=== PATIENT | male | born 1930 | race Caucasian/White ===

== ENCOUNTER 2017-03-26 17:21 | Inpatient (IN) | payer MEDICARE ==
[~2017-03-26] VITALS: Ht 182.9 cm; Wt 95.0 kg
[~2017-03-26 17:21] MED LIST: ASPI81 PO; B-1210005 OR; CENTTAB9 PO; FISH1000 PO; MELA3CAP2 PO; OMEP20CA5 PO; OYST500T71 PO
[2017-03-26 17:29] VITALS: BP 183/87; PULSE 67; RESP 17; TEMP 98.2; O2SAT 99
[2017-03-26 17:41] VITALS: RESP 17; O2SAT 100
--- NOTE | 2017-03-26 17:42 | PD ---
HPI Chief Complaint: fall Time Seen by Provider: 17:33 Travel History International Travel<30 days: No Contact w/Intl Traveler<30days: No History of Present Illness HPI 86-year-old male presents to the ED for evaluation of right hip pain. Onset after falling while attempting to open his sliding glass door just before arrival. He states that the doorknob broke, causing his fall. Patient denies hitting his head or loss of consciousness. He endorses 4/10 hip pain at rest, 8 /10 pain with attempted ROM. He has not been ambulatory since the accident. He denies numbness or weakness of the affected extremity. He takes an aspirin daily. He had a full lunch around noon today. Unsure of his last tetanus immunization. Per EMS he received 6mg morphine en route. PFSH Past Medical History Cancer: Yes (MELANOMA) Diminished Hearing: No GERD: Yes Glaucoma: Yes Genitourinary: Yes (ENLARGED PROSTATE) Hypertension: Yes Past Surgical History Abdominal Surgery: Yes (ESOPHAGOGASTRECTOMY 07/1994, HERNIA 1995) Appendectomy: Yes (1948) Eye Surgery: Yes (1991) Genitourinary Surgery: Yes (PROSTATE 07/06/2005) Other Surgery: Yes (MELANOMA REMOVED CHEST 11/1993, BACK/ RT SHOULDER 02/11/2004 ) Social History Alcohol Use: No Tobacco Use: No Substance Use: No Allergies-Medications (Allergen,Severity, Reaction): Coded Allergies: No Known Allergies (Verified , 03/26/17) Reported Meds & Prescriptions Reported Meds & Active Scripts Active Reported Melatonin 3 Mg Tab 3 Mg PO HS [Hydraplenish W/Msm] 1 Tab PO BID Lutein 6 Mg Tab 24 Mg PO DAILY Valsartan 80 Mg Tab 80 Mg PO DAILY Calcium 600+D (Calcium Carbonate-Vitamin D) 600-400 Mg-Unit Tab 1 Tab PO DAILY Aspirin Adult Low Strength (Aspirin) 81 Mg Tabdr 81 Mg PO DAILY Omeprazole 20 Mg Tab 20 Mg PO DAILY Metoprolol Succinate ER 24 HR (Metoprolol Succinate) 25 Mg Tab 25 Mg PO DAILY Centrum Silver Men Tablet (Multivit-Min/FA/Lycopen/Lutein) 300 Mcg-600 Mcg-300 Mcg Tablet 1 Tab PO DAILY Flaxseed Oil (Flaxseed (Linseed)) 1,000 Mg Cap 1,000 Mg PO DAILY Fish Oil 1000 mg ([place]-3 Fatty Acids) 300 Mg-1,000 Mg Cap 1,000 Mg PO DAILY B12 (Cyanocobalamin) 1,000 Mcg Tab 1,000 Mcg PO DAILY Alpha Lipoic Acid 200 Mg Cap 200 Mg PO DAILY Review of Systems Except as stated in HPI: all other systems reviewed are Neg Physical Exam Narrative GENERAL: Well-nourished, well-developed pleasant white male in no acute distress. SKIN: Focused skin assessment warm/dry. Abrasion of the right elbow. There is an ecchymosis the left hand, patient states is old. HEAD: Normocephalic. Atraumatic. EYES: No scleral icterus. No injection or drainage. PERRLA. EOMI. NECK: Supple, trachea midline. No JVD or lymphadenopathy. CARDIOVASCULAR: Regular rate and rhythm without murmurs, gallops, or rubs. RESPIRATORY: Breath sounds clear and equal bilaterally. No accessory muscle use. GASTROINTESTINAL: Abdomen soft, non-tender, nondistended. MUSCULOSKELETAL: No cyanosis, or edema. FOCUSED RIGHT LOWER EXTREMITY EXAM: 2+ DP pulse. The right leg is foreshortened , externally rotated. TTP of the anterolateral right hip. Sensation intact to light touch distally. Cap refill less than 2 seconds. BACK: Nontender without obvious deformity. No CVA tenderness. Data Data Last Documented VS Vital Signs Date Time Temp Pulse Resp B/P (MAP) Pulse Ox O2 Delivery O2 Flow Rate FiO2 03/26/17 17:41 17 100 Room Air 03/26/17 17:30 68 03/26/17 17:29 98.2 183/87 (119) Orders Orders Electrocardiogram (03/26/17:32) Complete Blood Count With Diff (03/26/17:32) Comprehensive Metabolic Panel (03/26/17:32) Prothrombin Time / Inr (Pt) (03/26/17:32) Act Partial Throm Time (Ptt) (03/26/17:32) Urinalysis - C+S If Indicated (03/26/17:32) Type And Screen (03/26/17:32) Chest, Single Ap (03/26/17:32) Hip, Uni(Ap&Lat) W Ap Pelvis (03/26/17 17:32) Iv Access Insert/Monitor (03/26/17:32) Oximetry (10/10/17 17:32) Ecg Monitoring (03/26/17 17:32) Sodium Chloride 0.9% Flush (Ns Flush) (03/26/17 17:45) NPO (03/26/17 17:32) Tetanus/Diphtheria Tox Adult (Tetanus/Di (03/26/17 18:00) Urinary Catheter Insert/Apply (03/26/17 18:14) Ct Brain W/O Iv Contrast(Rout) (03/26/17 ) Sodium Chlorid 0.9% 500 Ml Inj (Ns 500 M (03/26/17 18:30) Restraints Non-Violent SENG.Q3H (03/26/17 18:48) Consult Orthopedic (03/26/17 ) Admit To Inpatient (03/26/17 ) Vital Signs (Adult) SENG.Q4H (03/26/17 18:49) Activity Bed Rest (03/26/17 18:49) Quantitative Analyst / Telemetry SENG.Q8H (03/26/17 18:49) Intake + Output 06,14,22 (03/26/17 18:49) Diet Npo (03/26/17 Dinner) Sodium Chlor 0.45% 1000 Ml Inj (1/2 Ns 1 (03/26/17 19:00) Sodium Chloride 0.9% Flush (Ns Flush) (03/26/17 19:00) Sodium Chloride 0.9% Flush (Ns Flush) (03/26/17 21:00) Inpatient Certification (03/26/17 ) (Hub Use Only)Inp Phy Cons/Ref (03/26/17 ) Diet Heart Healthy (03/26/17 Dinner) Admit Order (Ed Use Only) (03/26/17 20:18) Labs Laboratory Tests Test 03/26/17 17:40 03/26/17 18:45 White Blood Count 7.2 TH/MM3 Red Blood Count 4.71 MIL/MM3 Hemoglobin 13.0 GM/DL Hematocrit 38.8 % Mean Corpuscular Volume 82.4 FL Mean Corpuscular Hemoglobin 27.5 PG Mean Corpuscular Hemoglobin Concent 33.4 % Red Cell Distribution Width 16.1 % Platelet Count 222 TH/MM3 Mean Platelet Volume 8.2 FL Neutrophils (%) (Auto) 71.5 % Lymphocytes (%) (Auto) 17.2 % Monocytes (%) (Auto) 10.1 % Eosinophils (%) (Auto) 0.7 % Basophils (%) (Auto) 0.5 % Neutrophils # (Auto) 5.2 TH/MM3 Lymphocytes # (Auto) 1.2 TH/MM3 Monocytes # (Auto) 0.7 TH/MM3 Eosinophils # (Auto) 0.1 TH/MM3 Basophils # (Auto) 0.0 TH/MM3 CBC Comment DIFF FINAL Differential Comment Prothrombin Time 10.6 SEC Prothromb Time International Ratio 1.0 RATIO Activated Partial Thromboplast Time 26.5 SEC Blood Urea Nitrogen 14 MG/DL Creatinine 1.56 MG/DL Random Glucose 110 MG/DL Total Protein 7.0 GM/DL Albumin 3.5 GM/DL Calcium Level 8.4 MG/DL Alkaline Phosphatase 77 U/L Aspartate Amino Transf (AST/SGOT) 22 U/L Alanine Aminotransferase (ALT/SGPT) 29 U/L Total Bilirubin 0.5 MG/DL Sodium Level 129 MEQ/L Potassium Level 3.4 MEQ/L Chloride Level 98 MEQ/L Carbon Dioxide Level 21.9 MEQ/L Anion Gap 9 MEQ/L Estimat Glomerular Filtration Rate 43 ML/MIN Urine Color YELLOW Urine Turbidity CLEAR Urine pH 7.5 Urine Specific Neptune 1.012 Urine Protein NEG mg/dL Urine Glucose (UA) NEG mg/dL Urine Ketones NEG mg/dL Urine Occult Blood NEG Urine Nitrite NEG Urine Bilirubin NEG Urine Urobilinogen LESS THAN 2.0 MG/DL Urine Leukocyte Esterase NEG Urine RBC LESS THAN 1 /hpf Urine WBC 3 /hpf Microscopic Urinalysis Comment CATH-CULT NOT IND MDM Medical Decision Making Medical Screen Exam Complete: Yes Emergency Medical Condition: Yes Differential Diagnosis fall from standing versus hip fracture versus abrasion versus need for tetanus immunization versus other Narrative Course 86-year-old male presents to the ED for evaluation of right hip pain. Onset after falling while attempting to open his sliding glass door just before arrival. He states that the doorknob broke, causing his fall. Patient denies hitting his head or loss of consciousness. He endorses 4/10 hip pain at rest, 8 /10 pain with attempted ROM. Vitals reviewed. On exam the patient is alert, oriented. The right leg is partially flexed at the knee, foreshortened and externally rotated. He has a bounding pulse in the foot him a sensation is intact to light touch distally. Tender to palpation of the anterolateral right hip. He has an abrasion on the right elbow and a bruise on the left hand. He states that the bruises old. Last tetanus 02/11/08 per chart review. Tetanus updated. EKG rate 78, sinus rhythm with occasional PVCs. RBBB. Normal axis. No acute ST changes. Reviewed by No concerning abnormalities of CBC, coags, UA. CMP: BUN 14, creatinine 1.56. GFR 43. Potassium 3.4. Calcium 8.4. X-ray right hip and pelvis: Nondisplaced fracture through the neck of the right femur per radiology read. The patient began having difficulties with speech. I suspect this is secondary to 6 mg morphine that was administered in route by EMS. CT brain was performed with no acute intracranial findings. Patient has a friend at bedside who requests that we call Dr. Castellano. I attempted to call Dr. Castellano, however Dr. Henderson is on-call for the group. I spoke with his PA Jos who requests that the patient be admitted to medicine and will relay the message to Dr. Castellano in the morning. I spoke with the PA for the [facility] who agrees to accept the patient under Dr. Sher. Please see medicine and ortho notes for disposition. Scripts Calcium Carbonate-Vitamin D (Calcium 600+D 200) 600-200 Mg-Unit Tab 1 TAB PO BID for Nutritional Supplement, #90 TAB 0 Refills Prov: Jarad Lockhart Jr. 03/27/17 Ergocalciferol (Ergocalciferol) 50,000 Unit Cap 57802 UNITS PO Q7D for Nutritional Supplement, #8 CAP Prov: Jarad Lockhart Jr. 03/27/17 Rivaroxaban (Xarelto) 10 Mg Tab 10 MG PO DAILY for Blood Clot Prevention, #21 TAB 0 Refills Prov: Jarad Lockhart Jr. 03/27/17 Hydrocodone-Acetaminophen (Hydrocodone-Acetaminophen) 7.5-325 mg Tab 1 TAB PO Q4H Y for PAIN, #40 TAB 0 Refills Prov: Jarad Lockhart Jr. 03/27/17 Christine Caceres Mar 26, 2017 17:42
[2017-03-26] MEDS ORDERED: SODIUM CHLORIDE 0.9% FLUSH 10 ML FLUSH IVF PRN (17:45)
[2017-03-26 17:58] LABS: AUTOMATED NEUTROPHIL # 5.2 TH/MM3 (1.8-7.7); BASOPHIL % 0.5 % (0.0-2.0); EOSINOPHIL # 0.1 TH/MM3 (0-0.4); EOSINOPHIL % 0.7 % (0.0-4.0); HEMATOCRIT 38.8 % (39.0-51.0); HEMO FLAGS DIFF FINAL; LYMPH % 17.2 % (9.0-44.0); LYMPHOCYTE # 1.2 TH/MM3 (1.0-4.8); MEAN CELL VOLUME 82.4 FL (80.0-100.0); MEAN CORPUSCULAR HEMOGLOBIN 27.5 PG (27.0-34.0); MEAN CORPUSCULAR HGB CONC 33.4 % (32.0-36.0); MONO % 10.1 % (0.0-8.0); NEUT % 71.5 % (16.0-70.0); PLATELET COUNT 222 TH/MM3 (150-450); RED BLOOD COUNT 4.71 MIL/MM3 (4.50-5.90); RED CELL DISTRIBUTION WIDTH 16.1 % (11.6-17.2); WHITE BLOOD COUNT 7.2 TH/MM3 (4.0-11.0)
[2017-03-26] MEDS ORDERED: TETANUS/DIPHTHERIA TOXOID ADULT 0.5 ML VIAL IM ONE (18:00)
--- NOTE | 2017-03-26 18:00 | RADRPT ---
EXAM DATE/TIME: 03/26/2017 17:44 [facility] COMPARISON: No previous studies available for comparison. INDICATIONS : Right hip pain post fall. MEDICAL HISTORY : None. SURGICAL HISTORY : None. ENCOUNTER: Initial ACUITY: 1 day PAIN SCORE: 10/10 LOCATION: Right hip. FINDINGS: There is a nondisplaced fracture through the neck of the proximal right femur. The femoral head remai ns within the acetabulum. Left hip is grossly intact. The bony structures of the pelvis are grossly i ntact. There is good alignment of the SI joints pubic symphysis. CONCLUSION: Nondisplaced fracture through the neck of the proximal right femur. Montrell Mcdermott MD on March 26, 2017 at 17:57 Board Certified Radiologist. This report was verified electronically.
[2017-03-26 18:11] LABS: APTT (PATIENT) 26.5 SEC (24.3-30.1); PROTHROMBIN TIME - PATIENT 10.6 SEC (9.8-11.6)
[2017-03-26 18:12] LABS: ALKALINE PHOSPHATASE 77 U/L (45-117); ALT (GPT) 29 U/L (12-78); ANION GAP 9 MEQ/L (5-15); AST (GOT) 22 U/L (15-37); BICARBONATE 21.9 MEQ/L (21.0-32.0); BLOOD UREA NITROGEN 14 MG/DL (7-18); CHLORIDE 98 MEQ/L (98-107); GLOMERULAR FILTRATION RATE 43 ML/MIN (>89); SODIUM (NA) 129 MEQ/L (136-145); TOTAL BILIRUBIN ADULT 0.5 MG/DL (0.2-1.0)
[2017-03-26 18:19] LABS: POTASSIUM 3.4 MEQ/L (3.5-5.1)
[2017-03-26] MEDS ORDERED: SODIUM CHLORID 0.9% 500 ML INJ 500 ML IV ONE (18:30)
[2017-03-26] MEDS ORDERED: CYAN1TAB24 PO (18:54)
[2017-03-26] MEDS ORDERED: MELA0.02 PO (18:54)
[2017-03-26] MEDS ORDERED: ALPH1CAP PO (18:54)
[2017-03-26] MEDS ORDERED: MSM PO (18:54)
[2017-03-26] MEDS ORDERED: FISH100020 PO (18:54)
[2017-03-26] MEDS ORDERED: [UNRECOGNIZED DRUG - OTHER] PO (18:54)
[2017-03-26] MEDS ORDERED: VALS1TAB64 PO (18:54)
[2017-03-26] MEDS ORDERED: FLAX1000 PO (18:54)
[2017-03-26] MEDS ORDERED: ASPI1TAB91 PO (18:54)
[2017-03-26] MEDS ORDERED: METO25TA6 PO (18:54)
[2017-03-26] MEDS ORDERED: OMEP20TA PO (18:54)
[2017-03-26] MEDS ORDERED: LUTE6TAB2 PO (18:54)
[2017-03-26] MEDS ORDERED: MULT1TAB64 PO (18:54)
[2017-03-26] MEDS ORDERED: CALCTAB38 PO (18:54)
--- NOTE | 2017-03-26 18:59 | RADRPT ---
EXAM DATE/TIME: 03/26/2017 17:44 [facility] COMPARISON: No previous studies available for comparison. INDICATIONS : Pain post fall. MEDICAL HISTORY : None. SURGICAL HISTORY : None. ENCOUNTER: Initial ACUITY: 1 day PAIN SCORE: 06/26 LOCATION: Bilateral chest FINDINGS: There is a prominent area of parenchymal consolidation in the right mid to right lower lung. This are a measures approximate 7 cm. The left lung is clear. There are no pleural effusions. Heart size is up per limits of normal. There is evidence of previous thoracic surgery. The there is an old right-sided rib fractures. The rest of the bony structures are grossly intact. The CONCLUSION: 1. 7 cm area of parenchymal consolidation in the right lower lung. Mass versus infiltrate are the con siderations. Recommend a noncontrast CT thorax for further evaluation of this finding. 2. The left lung is grossly clear. Montrell Mcdermott MD on March 26, 2017 at 18:56 Board Certified Radiologist. This report was verified electronically.
[2017-03-26] MEDS ORDERED: SODIUM CHLORIDE 0.9% FLUSH 10 ML FLUSH IV FLUSH PRN ×2 (19:00→21:45)
[2017-03-26] MEDS ORDERED: SODIUM CHLOR 0.45% 1000 ML INJ 1,000 ML IV SCH (19:00)
[2017-03-26 19:09] LABS: BLOOD, URINE NEG (NEG); GLUCOSE,URINE NEG (NEG); KETONE, URINE NEG (NEG); NITRITE,URINE NEG (NEG); PH, URINE 7.5 (5.0-8.5); URINE COLOR YELLOW (YELLW/STRAW)
[2017-03-26 19:10] LABS: COMMENT (UR) CATH-CULT NOT IND; CULTURE IF INDICATED CATH CULTURE NOT IND
--- NOTE | 2017-03-26 19:33 | RADRPT ---
EXAM DATE/TIME: 03/26/2017 19:09 [facility] COMPARISON: No previous studies available for comparison. INDICATIONS : Head pain due to fall. RADIATION DOSE: 61.99 CTDIvol (mGy) MEDICAL HISTORY : Hypertension. Skin cancer. SURGICAL HISTORY : Appendectomy. ENCOUNTER: Initial ACUITY: 1 day PAIN SCALE: Non-responsive LOCATION: Bilateral cranial TECHNIQUE: Multiple contiguous axial images were obtained of the head. Using automated exposure control and adj ustment of the mA and/or kV according to patient size, radiation dose was kept as low as reasonably a chievable to obtain optimal diagnostic quality images. DICOM format image data is available electro nically for review and comparison. FINDINGS: CEREBRUM: The ventricles are normal for age. The bilateral cortical atrophy. An old tiny left lacunar infarct i n the basal ganglia. No evidence of midline shift, mass lesion, hemorrhage or acute infarction. No e xtra-axial fluid collections are seen. Focal encephalomalacia high along the left frontal lobe charac teristic of an old infarct. POSTERIOR FOSSA: The cerebellum and brainstem are intact. The 4th ventricle is midline. The cerebellopontine angle i s unremarkable. EXTRACRANIAL: The visualized portion of the orbits is intact. SKULL: The calvaria is intact. No evidence of skull fracture. CONCLUSION: 1. No acute intracranial hemorrhage. 2. Focal encephalomalacia high along the left frontal lobe characteristic of an old infarct. 3. Tiny left basal ganglia lacunar infarct. 4. Bilateral cortical atrophy. Montrell Mcdermott MD on March 26, 2017 at 19:30 Board Certified Radiologist. This report was verified electronically.
[2017-03-26] MEDS ORDERED: SODIUM CHLORIDE 0.9% FLUSH 10 ML FLUSH IV FLUSH SCH (21:00)
[2017-03-26 21:10] VITALS: BP 180/90; PULSE 97; RESP 20; O2SAT 98
[2017-03-26 21:20] VITALS: BP 170/92
[2017-03-26 21:30] VITALS: BP 157/92; PULSE 106; RESP 19; TEMP 98.4; O2SAT 94
[2017-03-26] MEDS ORDERED: MAGNESIUM HYDROXIDE SUSP 30 ML CUP PO PRN (21:45)
[2017-03-26] MEDS ORDERED: MORPHINE SULFATE 4 MG/ML INJ IV PUSH PRN (21:45)
[2017-03-26] MEDS ORDERED: SENNOSIDES 8.6 MG TAB PO PRN (21:45)
[2017-03-26] MEDS ORDERED: ONDANSETRON HCL 4 MG/2 ML VIAL IVP PRN (21:45)
[2017-03-26] MEDS ORDERED: LACTULOSE SYRUP 20 GM/30 ML CUP PO PRN (21:45)
[2017-03-26] MEDS ORDERED: BISACODYL 10 MG SUPP RECTAL PRN (21:45)
[2017-03-26] MEDS ORDERED: NALOXONE HCL 0.4 MG/ML AMP IV PUSH PRN (21:45)
[2017-03-26] MEDS ORDERED: ACETAMINOPHEN 325 MG TAB PO PRN (21:45)
[2017-03-26] MEDS ORDERED: LACTATED RINGER'S 1000 ML IV PRN (22:15)
[2017-03-26] MEDS ORDERED: POVIDONE IODINE 5% (ANTISEPSIS KIT) 4 APPLICATIONS EACH NARE PRN (22:15)
[2017-03-26] MEDS ORDERED: INSULIN HUMAN REGULAR 1,000 UNITS/10 ML VIAL SQ PRN (22:15)
[2017-03-26] MEDS ORDERED: METOPROLOL TARTRATE 25 MG TAB PO PRN (22:15)
[2017-03-26] MEDS ORDERED: SODIUM CHLORID 0.9% 500 ML IV PRN (22:15)
[2017-03-26] MEDS ORDERED: CHLORHEXIDINE GLUCONATE 2 % 1 PACK (2 CLOTHS) TOPICAL PRN (22:15)
[2017-03-26] MEDS: SODIUM CHLOR 0.9% 1000 ML INJ 1,000 ML IV SCH (22:29)
[2017-03-26] MEDS: MORPHINE SULFATE 4 MG/ML INJ IV PUSH PRN (22:29)
[2017-03-26] MEDS ORDERED: METOPROLOL SUCCINATE 50 MG EXTENDED RELEASE TAB PO SCH (23:50)
[2017-03-26] MEDS ORDERED: VALSARTAN 80 MG TAB PO SCH (23:50)
[2017-03-27] VITALS (9 sets, daily range): BP systolic 115–172; BP diastolic 61–96; PULSE 72–111; RESP 18; TEMP 96.6–98.4; O2SAT 92–99
[2017-03-27] MEDS: MORPHINE SULFATE 4 MG/ML INJ IV PUSH PRN ×2 (01:34→05:31)
[2017-03-27] MEDS ORDERED: CHLORHEXIDINE GLUCONATE 2 % 1 PACK (2 CLOTHS) TOPICAL PRN (05:00)
[2017-03-27] MEDS ORDERED: METOPROLOL TARTRATE 25 MG TAB PO PRN (05:00)
[2017-03-27] MEDS ORDERED: SODIUM CHLORID 0.9% 500 ML IV PRN (05:00)
[2017-03-27] MEDS ORDERED: POVIDONE IODINE 5% (ANTISEPSIS KIT) 4 APPLICATIONS EACH NARE PRN (05:00)
[2017-03-27] MEDS ORDERED: LACTATED RINGER'S 1000 ML IV PRN (05:00)
[2017-03-27] MEDS ORDERED: INSULIN HUMAN REGULAR 1,000 UNITS/10 ML VIAL SQ PRN (05:00)
[2017-03-27] MEDS ORDERED: VANCOMYCIN HCL 1000 MG VIAL ONE ×2 (06:52→08:49)
[2017-03-27] MEDS ORDERED: GENTAMICIN SULFATE 80 MG/2 ML VIAL ONE (06:52)
--- NOTE | 2017-03-27 06:53 | PD.ORT.PN ---
Subjective Subjective Remarks Fall at home. Was outside him back portion trying to open sliding glass door. Sliding glass door is hard to move and the handle fell off a wall he was pulling it. He landed directly onto his right hip. He was unable to ambulate or stand. His arrived approximately and hour after he had been on the ground. Objective Vitals Vital Signs Date Time Temp Pulse Resp B/P (MAP) Pulse Ox O2 Delivery O2 Flow Rate FiO2 03/27/17 06:20 89 03/27/17 03:50 98.4 104 18 151/83 (105) 93 03/27/17 01:38 108 03/27/17 00:19 96.6 111 18 172/96 (121) 92 03/26/17 21:30 98.4 106 19 157/92 (113) 94 03/26/17 21:20 102 20 170/92 (118) 99 03/26/17 21:10 97 20 180/90 (120) 98 Room Air 03/26/17 17:41 17 100 Room Air 03/26/17 17:30 68 17 99 Room Air 03/26/17 17:29 98.2 67 17 183/87 (119) 99 I/O 03/26/17 03/26/17 03/26/17 03/27/17 03/27/17 03/27/17 06:59 14:59 22:59 06:59 14:59 22:59 Intake Total 120 ml 0 ml Output Total 425 ml Balance 120 ml -425 ml Intake Oral 120 ml 0 ml Output Urine Total 425 ml # Bowel Movements 0 Result Diagram: 03/26/17 1740 03/26/17 1740 Other Results Laboratory Tests Test 03/26/17 17:40 Prothromb Time International Ratio 1.0 RATIO Prothrombin Time 10.6 SEC (9.8-11.6) Imaging Last 24 hours Impressions Hip and Pelvis X-Ray 03/26/171731 Signed Impressions: Service Date/Time: Sunday, March 26, 2017 17:44 - CONCLUSION: Nondisplaced fracture through the neck of the proximal right femur. Montrell Mcdermott MD Chest X-Ray 03/26/171731 Signed Impressions: Service Date/Time: Sunday, March 26, 2017 17:44 - CONCLUSION: 1. 7 cm area of parenchymal consolidation in the right lower lung. Mass versus infiltrate are the considerations. Recommend a noncontrast CT thorax for further evaluation of this finding. 2. The left lung is grossly clear. Montrell Mcdermott MD Objective Remarks Bilateral upper extremities: Full range of motion neurovascularly intact Left lower extremity: No pain with hip or knee range of motion. Prior surgery to ankle with mild crepitus and some tenderness through range of motion of the ankle. No new pains. Distally intact sensation good capillary refills Right lower extremity: Pain to palpation of hip and any movement. No tenderness to palpation of knee or ankle. He has active dorsiflexion plantar flexion of the ankle. Intact sensation with good capillary refills Assessment & Plan Assessment and Plan Right subcapital fracture femoral neck Nothing by mouth Surgery this morning for right hip hemiarthroplasty Sign consents Surgery was discussed with family and understands risks and benefits of surgery Jarad Lockhart Jr. Mar 27, 2017 06:53
[2017-03-27] MEDS ORDERED: TRANEXAMIC ACID INJ 0 MG in SODIUM CHLORIDE 0.9% INJ 100 ML IV ONE (07:00)
[2017-03-27 07:11] LABS: AUTOMATED NEUTROPHIL # 10.1 TH/MM3 (1.8-7.7); BASOPHIL % 0.2 % (0.0-2.0); HEMATOCRIT 38.8 % (39.0-51.0); HEMO FLAGS DIFF FINAL; LYMPH % 6.7 % (9.0-44.0); LYMPHOCYTE # 0.8 TH/MM3 (1.0-4.8); MEAN CELL VOLUME 81.9 FL (80.0-100.0); NEUT % 85.1 % (16.0-70.0); PLATELET COUNT 191 TH/MM3 (150-450); RED BLOOD COUNT 4.74 MIL/MM3 (4.50-5.90); RED CELL DISTRIBUTION WIDTH 15.9 % (11.6-17.2); WHITE BLOOD COUNT 11.9 TH/MM3 (4.0-11.0)
[2017-03-27] MEDS ORDERED: ceFAZolin 2 GM PREMIX 50 ML ONE (07:36)
[2017-03-27] MEDS ORDERED: ACETAMINOPHEN 1000 MG/100 ML 100 ML IV ONE (07:36)
[2017-03-27 07:39] LABS: BICARBONATE 20.7 MEQ/L (21.0-32.0); POTASSIUM 3.3 MEQ/L (3.5-5.1)
[2017-03-27] MEDS: SODIUM CHLOR 0.9% 1000 ML INJ 1,000 ML IV SCH ×2 (07:40→17:40)
[2017-03-27] MEDS ORDERED: TRANEXAMIC ACID IV SCH (07:45)
[2017-03-27] MEDS ORDERED: SODIUM CHLORIDE 0.9% IV SCH (07:45)
[2017-03-27] MEDS ORDERED: ceFAZolin 2 GM PREMIX 50 ML IV ONE (08:00)
[2017-03-27] MEDS: METOPROLOL TARTRATE 25 MG TAB PO SCH ×2 (09:00→19:59)
[2017-03-27] MEDS ORDERED: SODIUM CHLORIDE 0.9% FLUSH 10 ML FLUSH IV FLUSH SCH (09:00)
[2017-03-27] MEDS ORDERED: SODIUM CHLORIDE 0.9% FLUSH 5 ML FLUSH IVF PRN (09:30)
[2017-03-27] MEDS ORDERED: ACETAMINOPHEN/HYDROcodone 325 MG/7.5 MG TAB PO PRN ×2 (09:30→17:30)
[2017-03-27] MEDS ORDERED: MORPHINE SULFATE 4 MG/ML INJ IV PUSH PRN (09:30)
--- NOTE | 2017-03-27 09:30 | PD.OP ---
cc: Dudley Salazar MD Operative Report Date of Surgery: Mar 27, 2017 Preoperative Diagnosis: Right femoral neck fracture Postoperative Diagnosis: Procedure: Right hip bipolar hemiarthroplasty Anesthesia: Gen. Surgeon: Dudley Salazar Wax Engraver(s): ANA Pascual PA-C The surgical procedure was assisted by my physician religious assistant. My P.A. presence was necessary throughout this case for the manipulation and positioning of the surgical extremity. My P.A. was assisting me throughout the duration of this procedure. The skill set of a physician religious assistant was medically necessary to complete this procedure. During the surgical case the ophthalmic surgical assistant was working at the back table and the physician religious assistant was directly assisting me. Operation and Findings: PLAN OF ACTIVITY Weight bear as tolerated. IMPLANTS USED [employer] cemented [place] size 8 stem with size [54] bipolar head and [+1] neck. DRAIN: 7 mm Rufino-Cook drain DETAILS OF PROCEDURE This patient was brought into the operating room and placed on the OR table. The patient was given anesthesia. The patient received IV antibiotics. The patient was then placed in lateral decubitus position. The hip and leg were prepped with alcohol, followed by Hibiclens and draped in a usual sterile fashion. Clean air was used for this procedure. Time out procedure was performed. The procedure began with a 5 inch incision over the posterolateral hip. The subcutaneous tissue was dissected with the Bovie. The iliotibial band were split in line with fibers. The Charnley retractor was placed. The piriformis and external rotators were released from the femur and tagged with a #1 Vicryl suture. The capsule is now incised and tagged with #1 Vicryl. The femoral neck fracturewas now visualized. A corkscrew was now used to remove the femoral head. The femoral head was sized and measured. Soft tissue was now protected. The hip skid was placed underneath the femoral neck. An oscillating saw was used to make a femoral neck cut. At this point attention was turned to preparation of the proximal femur. A box osteotome was used to remove the lateral cortex of the femoral neck. The T- handle reamer was used to open the femoral canal. The canal was now reamed. Next , the canal was broached up to appropiate size. A lateralizing reamer was used to help lateralize the prosthesis. At this point a trial head and neck were placed. The hip was reduced. The patient was found to have excellent stability with good range of motion. Trial components were removed. Soft tissue and bone were thoroughly irrigated. The summit stem was now opened. Cement was mixed with vancomycin powder. Cement was pressurized into the femoral canal. The stem was now placed into the proximal femur. Care was taken to keep appropriate anteversion. excess cement was removed. After cement was set, the head and neck were now impacted onto the stem. The hip was again reduced. The hip was found to have good range of motion and good stability. Leg lengths were clinically equal. The wound was thoroughly irrigated. The capsule, piriformis and iliotibial band were closed with #1 Vicryl. Subcutaneous tissue was closed with 3-0 Vicryl. The skin was closed with jennifer. A sterile dressing was applied with Primapore. The patient was placed into a knee immobilizer. The patient was awakened and transferred to the recovery room in stable condition. Needle and sponge counts were correct. Dudley Salazar MD Mar 27, 2017 09:30
[2017-03-27] MEDS ORDERED: Post-op Orders (for Pharmacy) MISC XX ONE (09:49)
--- NOTE | 2017-03-27 09:49 | MB ---
cc: OMAR FERNANDEZ DATE OF CONSULTATION 03/27/2017 DATE OF ADMISSION 03/26/2017 REASON FOR CONSULTATION Right femoral neck fracture. HISTORY Caleb is an 86-year-old male who had a fall. He was attempting to open his door. The door handle came off. He lost his balance and fell. He did not hit his head. He denies dizziness, syncope or loss of consciousness. He had immediate right hip pain. He lives at home with his . He was unable to stand or ambulate. He presented to the emergency room where x-rays revealed a right femoral neck fracture. He is currently awake on the orthopedic floor. He is having some sedation and confusion secondary to narcotic pain medication. His and daughter are at bedside. PAST MEDICAL HISTORY ILLNESSES 1. History of melanoma 2. BPH 3. Reflux 4. Glaucoma 5. Hypertension PAST SURGERIES 1. Hernia repair 2. Appendectomy 3. Eye surgery 4. Skin cancer removal 5. Esophagogastrectomy ALLERGIES NO KNOWN DRUG ALLERGIES. MEDICATIONS Medications include: 1. Melatonin 2. Lutin 3. Valsartan 4. Calcium 5. Aspirin 6. Omeprazole 7. Metoprolol 8. Centrum 9. Flaxseed 10. B12 ALLERGIES NO KNOWN DRUG ALLERGIES. SOCIAL HISTORY The patient denies alcohol, tobacco or drug use. He lives at home with his . REVIEW OF SYSTEMS The patient is currently mildly sedated. He is unable to answer review of systems appropriately. PHYSICAL EXAMINATION The patient is a pleasant 86-year-old male who is mildly sedated. He is awake, but has some confusion. He appears well-developed and well-nourished. VITAL SIGNS: Temperature 97.2, pulse 87, respirations 18, blood pressure 147/80. O2 sat is 92% on room air. HEAD: The patient is normocephalic. EYES, EARS, NOSE AND THROAT: Pupils are equal. NECK: Soft and nontender. Trachea is midline. ABDOMEN: Soft, nontender, nondistended. EXTREMITIES: Examination of the bilateral upper extremity reveals no significant pain with shoulder, elbow or wrist motion. He has good cap refill in his fingers. Skin was intact in both hands. Radial pulses are palpable. Examination of the left leg reveals no pain with hip, knee or ankle motion. Skin is intact. Dorsalis pedis pulses palpable. Sensation is intact. Skin is intact. Examination of the right leg reveals pain with any hip motion. His right leg is shortened and externally rotated. He has no tenderness around his knee, tibia, or ankle. Skin is intact. Dorsalis pedis pulses are palpable. Sensation is intact. X-RAYS X-rays of the right hip were reviewed. X-rays reveal a displaced right femoral neck fracture. IMPRESSION Displaced right femoral neck fracture. PLAN Treatment options were discussed with the patient and his family. At this point, I would recommend right hip hemiarthroplasty. The risks of surgery include bleeding, infection, injury to arteries, nerves and blood vessels, hip dislocation, leg length discrepancy, as well as medical complications including blood clot, stroke, heart attack and . All questions were answered. I will plan on surgery today. A mid-level provider in my office, nurse practitioner or PA, may see this patient on a follow-up basis and continue to implement the objective of this plan including: Starting or adjusting medications, injections of muscle, tendon, bursa or joints, cast application, orthotic or brace application, physical therapy, further radiographic studies including x-ray, MRI, CT, ultrasounds or bone scan, vascular studies, neurologic studies, or other specialist consultations, and proceeding with surgical management as appropriate. MD BRENT Benavides/HEATH /9:33 AM /9:38 AM
[2017-03-27] MEDS ORDERED: DO NOT ADM ANY ANTICOAGULANT DRUGS PRN (09:56)
[2017-03-27] MEDS ORDERED: CALCTAB19 PO (10:14)
[2017-03-27] MEDS ORDERED: HYDR-3580 PO (10:14)
[2017-03-27] MEDS ORDERED: XARE10TA PO (10:14)
[2017-03-27] MEDS ORDERED: WALKER/ADULT/FO1 MIS (10:14)
[2017-03-27] MEDS ORDERED: ERGO1CAP30 PO (10:14)
--- NOTE | 2017-03-27 11:52 | RADRPT ---
EXAM DATE/TIME: 03/27/2017 10:45 [facility] COMPARISON: HIP RIGHT (AP&LAT 2/3VWS) W AP PELVIS, March 26, 2017, 17:44. INDICATIONS : Post-op right hip. MEDICAL HISTORY : None. SURGICAL HISTORY : None. ENCOUNTER: Initial ACUITY: 1 day PAIN SCORE: 0/10 LOCATION: Right HIP. FINDINGS: The patient is status post a total hip arthroplasty with a bipolar prosthesis. Prosthesis is well-sea rosemary. Alignment is anatomic. A fracture is not appreciated. CONCLUSION: Anatomic alignment. Lopez Atwood MD FACR Board Certified Radiologist. This report was verified electronically.
[2017-03-27] MEDS ORDERED: ERGOCALCIFEROL (VIT D2) 50,000 UNIT CAP PO ONE (13:00)
[2017-03-27] MEDS ORDERED: TRANEXAMIC ACID INJ 1,300 MG in SODIUM CHLORIDE 0.9% INJ 100 ML IV SCH (16:00)
[2017-03-27] MEDS: ceFAZolin 2 GM PREMIX 50 ML IV SCH ×2 (16:03→20:00)
[2017-03-27] MEDS ORDERED: DORZ2SOL15 EACH EYE (17:23)
[2017-03-27] MEDS ORDERED: ALPH0.1S EACH EYE (17:25)
[2017-03-27] MEDS ORDERED: LUMI0.01 EACH EYE (17:26)
[2017-03-27] MEDS: VALSARTAN 80 MG TAB PO SCH (17:30)
[2017-03-27] MEDS ORDERED: ARTIFICIAL TEARS OPTH SOLN 15 ML BTL EACH EYE PRN (17:45)
--- NOTE | 2017-03-27 18:49 | MH ---
cc: KARLO JAVIER DATE OF ADMISSION 03/26/2017 DATE OF [address] Karlo Javier. REASON FOR ADMISSION Hip pain after a fall. HISTORY OF THE PRESENT ILLNESS The patient is a very pleasant 86-year-old male with a significant past history of hypertension, melanoma in the past and esophageal cancer status post surgery who came to the ER after a fall. While the patient was trying to attempt opening a glass door ___ broke and he fell. He did have any unconscious. The patient was brought to the emergency room. In the emergency room it was found that the patient had a fracture for which the patient was recommended admission. The patient was given morphine in the ER which caused him, as per , confusion. At present postoperative he is in his room. Denies any pain. Alert and oriented. Not in any distress. He has no nausea, vomiting, diarrhea. Denies any abdominal pain, chest pain, shortness of breath, cough. Denies any headache or dizziness. PAST MEDICAL HISTORY 1. Hypertension. 2. History of a esophageal cancer status post esophagogastrectomy in 1994. 3. Hernia repair in 1995. 4. Benign prostatic hypertrophy status post surgery. 5. Melanoma removed from the chest and back of shoulder. 6. Gastroesophageal reflux disease. 7. Glaucoma. 8. Diminished hearing. MEDICATIONS Reviewed, please see the EMR. ALLERGIES NO KNOWN DRUG ALLERGIES. REVIEW OF SYSTEMS As described above in the history of present illness, otherwise negative for 10 systems. SOCIAL HISTORY The patient is and lives with his . Does not smoke, drink or do any drugs. PHYSICAL EXAMINATION GENERAL: The patient is alert and oriented, lying on bed without any apparent distress at present. VITAL SIGNS: The patient is afebrile, pulse is 74, respiratory rate 18, blood pressure 144/78, pulse ox is 94% on room air. HEENT: Head is atraumatic, normocephalic. Eyes negative conjunctival icterus. Mouth unremarkable. NECK: Supple. No increased JVD. Central trachea.. CHEST: Clear to auscultation. CARDIOVASCULAR: S1-S2 audible. Unable to hear any S3 gallop. GASTROINTESTINAL: Abdomen soft, nontender, no organomegaly. Positive bowel sounds. MUSCULOSKELETAL: No cyanosis or pedal edema appreciated. Positive dressing on the surgical site. CENTRAL NERVOUS SYSTEM: Alert, oriented. Normal facial features. Moving his toes. SKIN: Warm and dry. PSYCHIATRIC: Appropriate mood and affect. LABORATORY DATA Investigations, UA within normal limits. BMP shows potassium 3.3, sodium 131. Yesterday sodium was 139. yesterday. Sodium was 189 yesterday. Yesterday creatinine 1.56, today 1.06. Random glucose 142. WBC 11.9, hemoglobin 12.8, hematocrit 38.8. PT, INR and PTT within normal limits. IMAGING Head CT was done which shows no acute intracranial hemorrhage. 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 Tiny left basal ganglia lacunar infarct. Bilateral cortical atrophy. Pelvis x-ray showed nondisplaced fracture through the neck of the proximal right femur. A chest x-ray was done which showed 7 cm area of parenchymal consolidation in the right lower lung. Mass versus infiltrate are the considerations. The left lung is grossly clear. EKG shows sinus rhythm at rate of 78, occasional PVCs, right bundle-branch block. No acute ST-T wave changes. ASSESSMENT 1. Right hip fracture, femoral neck fracture status post right hip bipolar hemiarthroplasty. 2. Hypertension. 3. Vitamin D deficiency. 4. History of esophageal cancer. 5. Right lung mass 7 cm. 6. Gastroesophageal reflux disease. 7. History of BPH status post prostate procedure in 2005. PLAN 1. Appreciate orthopedic consult and help. Post surgery. Postoperative day number zero. 2. Continue home medications as indicated. 3. Vitamin D replacement. 4. Analgesics on as needed basis. 5. Antiemetics on an as needed basis. 6. Wound care as per orthopedics. 7. Deep venous thrombosis prophylaxis as per orthopedics. 8. Postoperative antibiotics as per orthopedics. 9. Condition discussed with the patient and at the bedside. Further recommendations to follow as the patient progresses. Karlo Jaiver MD JP/DONOVAN /5:11 PM /6:05 PM
[2017-03-27] MEDS: CALCIUM/VITAMIN D 250 MG/125 U TAB PO SCH (19:59)
[2017-03-27] MEDS: SODIUM CHLORIDE 0.9% FLUSH 5 ML FLUSH IVF SCH (20:00)
[2017-03-27] MEDS ORDERED: ERGOCALCIFEROL (VIT D2) 50,000 UNIT CAP PO SCH (20:00)
[2017-03-27] MEDS: BRIMONIDINE TARTRATE 0.15% OPHT SOLN 5 ML BTL EACH EYE SCH (20:32)
[2017-03-27] MEDS: DORZOLAMIDE/TIMOLOL OPTH SOLN 10 ML BTL EACH EYE SCH (20:33)
[2017-03-27] MEDS: LATANOPROST 0.005% OPHT SOLN 2.5 ML BTL EACH EYE SCH (20:33)
--- NOTE | 2017-03-27 20:50 | RADRPT ---
EXAM DATE/TIME: 03/27/2017 20:39 [facility] COMPARISON: CHEST SINGLE AP, March 26, 2017, 17:44. INDICATIONS : Shortness of breath. Evaluate right lower lung mass versus infiltrate. RADIATION DOSE: 5.19 CTDIvol (mGy) MEDICAL HISTORY : Hypertension. Carcinoma, esophageal. Skin cancer. SURGICAL HISTORY : Esophagogastrectomy. ENCOUNTER: Initial ACUITY: 1 day PAIN SCALE: 0/10 LOCATION: chest TECHNIQUE: Volumetric scanning of the chest was performed. Using automated exposure control and adjustment of t he mA and/or kV according to patient size, radiation dose was kept as low as reasonably achievable to obtain optimal diagnostic quality images. DICOM format image data is available electronically for r eview and comparison. Follow-up recommendations for detected pulmonary nodules are based at a minimum on nodule size and pa tient risk factors according to Fleischner Society Guidelines. FINDINGS: LUNGS: The lungs are grossly clear. No focal or acute infiltrates are demonstrated. There is some postsurgic al scarring in the medial right lower lung. Patient is status post an esophagectomy with a gastric pu ll-through. This created the abnormal finding on the recent chest x-ray. There is no evidence of a frida ng mass. PLEURAE: There is no pleural thickening or pleural effusion. MEDIASTINUM: The heart and great vessels demonstrate no acute abnormality. There is no mediastinal or hilar lymph adenopathy. AXILLAE: Within normal limits. No lymphadenopathy. MUSCULOSKELETAL: Within normal limits for patient age. Degenerative type changes. MISCELLANEOUS: The visualized upper abdominal organs demonstrate no acute abnormality. Possible stone in the gallbla dder. CONCLUSION: 1. Status post esophagectomy with a gastric pull-through on the right side. 2. No acute intrathoracic disease. 3. Possible gallstone in the gallbladder. Montrell Mcdermott MD on March 27, 2017 at 20:45 Board Certified Radiologist. This report was verified electronically.
[2017-03-27] MEDS ORDERED: NON-FORMULARY DRUG (Melatonin 3 MG) PO SCH (21:00)
[2017-03-27] MEDS ORDERED: [UNRECOGNIZED DRUG - OTHER] PO SCH (21:00)
[2017-03-27] MEDS ORDERED: MSM PO SCH (21:00)
--- NOTE | 2017-03-27 23:47 | EKG ---
Date Performed: 03/26/2017 Time Performed: 18:48:51 PTAGE: 86 years EKG: Sinus rhythm WITH OCCASIONAL VENTRICULAR PREMATURE COMPLEXES RIGHT BUNDLE BRANCH BLOCK ABNORMAL ECG NO PREVIOUS TRACING DOCTOR: Alexis Chung Interpretating Date/Time 03/27/2017 23:46:11
[2017-03-28] VITALS (7 sets, daily range): BP systolic 115–146; BP diastolic 61–75; PULSE 67–79; RESP 17–28; TEMP 96.5–98; O2SAT 92–95
[2017-03-28] MEDS: ceFAZolin 2 GM PREMIX 50 ML IV SCH (02:01)
[2017-03-28] MEDS: SODIUM CHLOR 0.9% 1000 ML INJ 1,000 ML IV SCH ×3 (02:46→23:04)
--- NOTE | 2017-03-28 06:45 | PD.ORT.PN ---
Subjective Subjective Remarks Resting comfortably. More alert than yesterday. Objective Vitals Vital Signs Date Time Temp Pulse Resp B/P (MAP) Pulse Ox O2 Delivery O2 Flow Rate FiO2 03/28/17 04:59 97.7 79 18 141/74 (96) 95 03/27/17 23:34 97.7 76 18 115/61 (79) 94 03/27/17 19:40 96.7 72 18 127/71 (89) 92 03/27/17 16:00 98.1 87 18 153/88 (109) 93 03/27/17 11:45 96.7 74 18 144/78 (100) 94 03/27/17 11:00 97.8 72 20 133/71 (91) 94 Nasal Cannula 2 03/27/17 10:45 70 20 133/71 (91) 95 Nasal Cannula 2 03/27/17 10:30 78 20 137/65 (89) 95 Nasal Cannula 2 03/27/17 10:15 67 20 133/68 (89) 96 Nasal Cannula 2 03/27/17 09:56 97.8 71 20 123/58 (79) 96 Nasal Cannula 2 03/27/17 06:45 97.2 87 18 147/88 (107) 92 I/O 03/27/17 03/27/17 03/27/17 03/28/17 03/28/17 03/28/17 07:00 15:00 23:00 07:00 15:00 23:00 Intake Total 0 ml 1200 ml 360 ml 360 ml Output Total 425 ml 500 ml 460 ml 610 ml Balance -425 ml 700 ml -100 ml -250 ml Intake Oral 0 ml 360 ml 360 ml Other 1200 ml Output Urine Total 425 ml 300 ml 450 ml 600 ml Drainage Total 10 ml 10 ml Estimated Blood Loss 200 ml # Bowel Movements 0 0 0 Result Diagram: 03/27/1761703/27/17617 Imaging Last 24 hours Impressions Hip and Pelvis X-Ray 03/26/171731 Signed Impressions: Service Date/Time: Sunday, March 26, 2017 17:44 - CONCLUSION: Nondisplaced fracture through the neck of the proximal right femur. Montrell Mcdermott MD Chest X-Ray 03/26/171731 Signed Impressions: Service Date/Time: Sunday, March 26, 2017 17:44 - CONCLUSION: 1. 7 cm area of parenchymal consolidation in the right lower lung. Mass versus infiltrate are the considerations. Recommend a noncontrast CT thorax for further evaluation of this finding. 2. The left lung is grossly clear. Montrell Mcdermott MD Objective Remarks Bilateral upper extremities: Full range of motion neurovascularly intact Left lower extremity: No pain with hip or knee range of motion. Prior surgery to ankle with mild crepitus and some tenderness through range of motion of the ankle. No new pains. Distally intact sensation good capillary refills Right lower extremity: Clean dry dressings intact with drain in place. Knee immobilizer in position. Distally intact sensation with good capillary refills. Strong dorsiflexion\ plantar flexion of foot Assessment & Plan Assessment and Plan Right hip hemiarthroplasty cemented stem POD 1 Physical therapy weightbearing as tolerated with posterior hip precautions knee immobilizer when in bed Daily dressing changes beginning POD 2 with removal of drain Lovenox Incentive spirometry Case management for rehabilitation placement Follow-up with Dr. Salazar or PA in 2 weeks Jarad Lockhart Jr. Mar 28, 2017 06:45
[2017-03-28 07:08] LABS: HEMATOCRIT 32.6 % (39.0-51.0); MEAN CELL VOLUME 82.3 FL (80.0-100.0); MEAN CORPUSCULAR HEMOGLOBIN 27.7 PG (27.0-34.0); MEAN CORPUSCULAR HGB CONC 33.6 % (32.0-36.0); PLATELET COUNT 173 TH/MM3 (150-450); RED BLOOD COUNT 3.97 MIL/MM3 (4.50-5.90); RED CELL DISTRIBUTION WIDTH 16.2 % (11.6-17.2); REVIEW FLAG FINAL; WHITE BLOOD COUNT 13.5 TH/MM3 (4.0-11.0)
[2017-03-28 07:47] LABS: BICARBONATE 23.7 MEQ/L (21.0-32.0); POTASSIUM 3.4 MEQ/L (3.5-5.1)
[2017-03-28] MEDS: ENOXAPARIN SODIUM 30 MG/0.3 ML SYRINGE SQ SCH (08:24)
[2017-03-28] MEDS: CHOLECALCIFEROL (VIT D3) 5000 UNIT CAP PO SCH (08:24)
[2017-03-28] MEDS: CYANOCOBALAMIN 1,000 MCG TAB PO SCH (08:24)
[2017-03-28] MEDS: MULTIVITAMIN TAB PO SCH (08:25)
[2017-03-28] MEDS: PANTOPRAZOLE SOD 20 MG DELAYED RELEASE TAB PO SCH (08:25)
[2017-03-28] MEDS: CALCIUM/VITAMIN D 250 MG/125 U TAB PO SCH ×2 (08:25→20:53)
[2017-03-28] MEDS: METOPROLOL TARTRATE 25 MG TAB PO SCH ×2 (08:25→20:54)
[2017-03-28] MEDS: VALSARTAN 80 MG TAB PO SCH (08:25)
[2017-03-28] MEDS: METOPROLOL SUCCINATE 25 MG EXTENDED RELEASE TAB PO SCH (08:26)
[2017-03-28] MEDS: SODIUM CHLORIDE 0.9% FLUSH 5 ML FLUSH IVF SCH ×2 (08:30→20:54)
[2017-03-28] MEDS: DORZOLAMIDE/TIMOLOL OPTH SOLN 10 ML BTL EACH EYE SCH ×2 (08:31→20:54)
[2017-03-28] MEDS: BRIMONIDINE TARTRATE 0.15% OPHT SOLN 5 ML BTL EACH EYE SCH ×2 (08:31→20:54)
[2017-03-28] MEDS ORDERED: NON-FORMULARY DRUG (Alpha Lipoic Acid 200 MG) PO SCH (09:00)
[2017-03-28] MEDS ORDERED: NON-FORMULARY DRUG (Flaxseed (Linseed) (Flaxseed Oil) 1,000 MG) PO SCH (09:00)
[2017-03-28] MEDS ORDERED: NON-FORMULARY DRUG (Omega-3 Fatty Acids (Fish Oil 1000 mg) 1,000 MG) PO SCH (09:00)
[2017-03-28] MEDS ORDERED: CALCIUM CARBONATE VITAMIN D PO SCH (09:00)
[2017-03-28] MEDS ORDERED: LUTEIN PO SCH (09:00)
[2017-03-28] MEDS: ASPIRIN EC 81 MG TABEC PO SCH (11:58)
[2017-03-28] MEDS ORDERED: POTASSIUM CHLORIDE 20 MEQ CONTROLLED RELEASE TAB PO ONE (19:00)
[2017-03-28] MEDS: LATANOPROST 0.005% OPHT SOLN 2.5 ML BTL EACH EYE SCH (20:54)
--- NOTE | 2017-03-28 21:36 | HHI.PR ---
Subjective Remarks pt is feeling better no pain no n/v no sob no chest pain ROS for 10 point system is unremarkable Objective Objective Results - Vital Signs Date Time Temp Pulse Resp B/P (MAP) Pulse Ox O2 Delivery O2 Flow Rate FiO2 03/28/17 20:56 98.0 76 28 146/73 (97) 92 03/28/17 20:43 92 03/28/17 16:00 96.5 69 18 115/61 (79) 92 03/28/17 12:00 97.6 68 17 139/75 (96) 95 03/28/17 08:44 73 03/28/17 08:00 97.8 67 18 121/62 (81) 93 03/28/17 07:23 Room Air 03/28/17 04:59 97.7 79 18 141/74 (96) 95 03/27/17 23:34 97.7 76 18 115/61 (79) 94 I/O 03/27/17 03/27/17 03/27/17 03/28/17 03/28/17 03/28/17 07:00 15:00 23:00 07:00 15:00 23:00 Intake Total 0 ml 1200 ml 360 ml 360 ml Output Total 425 ml 500 ml 460 ml 610 ml Balance -425 ml 700 ml -100 ml -250 ml Intake Oral 0 ml 360 ml 360 ml Other 1200 ml Output Urine Total 425 ml 300 ml 450 ml 600 ml Drainage Total 10 ml 10 ml Estimated Blood Loss 200 ml # Bowel Movements 0 0 0 Result Diagram: 03/28/17 0600 03/28/17 06 Other Results Laboratory Tests Test 03/28/17 06:00 White Blood Count 13.5 Red Blood Count 3.97 Hemoglobin 11.0 Hematocrit 32.6 Mean Corpuscular Volume 82.3 Mean Corpuscular Hemoglobin 27.7 Mean Corpuscular Hemoglobin Concent 33.6 Red Cell Distribution Width 16.2 Platelet Count 173 Mean Platelet Volume 7.9 Blood Urea Nitrogen 14 Creatinine 1.10 Random Glucose 100 Calcium Level 7.7 Sodium Level 130 Potassium Level 3.4 Chloride Level 98 Carbon Dioxide Level 23.7 Anion Gap 8 Estimat Glomerular Filtration Rate 64 Physical Exam Physical Exam GENERAL: The patient is alert and oriented, lying on bed without any apparent distress at present. VITAL SIGNS: reviewed HEENT: Head is atraumatic, normocephalic. Eyes negative conjunctival icterus. Mouth unremarkable. NECK: Supple. No increased JVD. Central trachea.. CHEST: Clear to auscultation. CARDIOVASCULAR: S1-S2 audible. Unable to hear any S3 gallop. GASTROINTESTINAL: Abdomen soft, nontender, no organomegaly. Positive bowel sounds. MUSCULOSKELETAL: No cyanosis or pedal edema appreciated. Positive dressing on the surgical site. CENTRAL NERVOUS SYSTEM: Alert, oriented. Normal facial features. Moving his toes. SKIN: Warm and dry. PSYCHIATRIC: Appropriate mood and affect. A/P Assessment and Plan 1. Right hip fracture, femoral neck fracture status post right hip bipolar hemiarthroplasty. 2. Hypertension. 3. Vitamin D deficiency. 4. History of esophageal cancer. 5. Right lung mass 7 cm. 6. Gastroesophageal reflux disease. 7. History of BPH status post prostate procedure in 2005. PLAN Appreciate orthopedic consult and help. Post surgery. Postoperative day number 1. Continue home medications as indicated. Vitamin D replacement. Analgesics on as needed basis. Antiemetics on an as needed basis. Wound care as per orthopedics. Deep venous thrombosis prophylaxis as per orthopedics. Postoperative antibiotics as per orthopedics. ct report explained to pt and daughter at bedside Condition discussed with the patient and at the bedside. Further recommendations to follow as the patient progresses. Brittany Javier MD Mar 28, 2017 21:36
[2017-03-29] VITALS (8 sets, daily range): BP systolic 149–164; BP diastolic 82–94; PULSE 72–96; RESP 17–20; TEMP 97.4–99.9; O2SAT 92–95
--- NOTE | 2017-03-29 07:08 | PD.ORT.PN ---
Subjective Subjective Remarks Resting comfortably. More alert than yesterday. Objective Vitals Vital Signs Date Time Temp Pulse Resp B/P (MAP) Pulse Ox O2 Delivery O2 Flow Rate FiO2 03/29/17 05:15 98.1 77 18 152/82 (105) 95 03/29/17 03:51 73 03/29/17 01:40 97.4 76 20 152/82 (105) 95 03/28/17 20:56 98.0 76 28 146/73 (97) 92 03/28/17 20:43 92 03/28/17 16:00 96.5 69 18 115/61 (79) 92 03/28/17 12:00 97.6 68 17 139/75 (96) 95 03/28/17 08:44 73 03/28/17 08:00 97.8 67 18 121/62 (81) 93 03/28/17 07:23 Room Air I/O 03/28/17 03/28/17 03/28/17 03/29/17 03/29/17 03/29/17 07:00 15:00 23:00 07:00 15:00 23:00 Intake Total 360 ml Output Total 610 ml 415 ml 1265 ml Balance -250 ml -415 ml -1265 ml Intake Oral 360 ml Output Urine Total 600 ml 375 ml 1225 ml Drainage Total 10 ml 40 ml 40 ml # Voids 2 7 # Bowel Movements 0 Result Diagram: 03/28/17 0600 03/28/17 0600 Imaging Last 24 hours Impressions Hip and Pelvis X-Ray 03/26/171731 Signed Impressions: Service Date/Time: Sunday, March 26, 2017 17:44 - CONCLUSION: Nondisplaced fracture through the neck of the proximal right femur. Montrell Mcdermott MD Chest X-Ray 03/26/172 Signed Impressions: Service Date/Time: Sunday, March 26, 2017 17:44 - CONCLUSION: 1. 7 cm area of parenchymal consolidation in the right lower lung. Mass versus infiltrate are the considerations. Recommend a noncontrast CT thorax for further evaluation of this finding. 2. The left lung is grossly clear. Montrell Mcdermott MD Objective Remarks Bilateral upper extremities: Full range of motion neurovascularly intact Left lower extremity: No pain with hip or knee range of motion. Prior surgery to ankle with mild crepitus and some tenderness through range of motion of the ankle. No new pains. Distally intact sensation good capillary refills Right lower extremity: Clean dry dressings intact with drain in place. Knee immobilizer in position. Distally intact sensation with good capillary refills. Strong dorsiflexion\ plantar flexion of foot Assessment & Plan Assessment and Plan Right hip hemiarthroplasty cemented stem POD 2 Physical therapy weightbearing as tolerated with posterior hip precautions knee immobilizer when in bed Daily dressing changes removal of drain Lovenox Incentive spirometry Case management for rehabilitation placement - orthopedically cleared when bed arranged and medically stable Follow-up with Dr. Salazar or PA in 2 weeks Jarad Lockhart Jr. Mar 29, 2017 07:08
[2017-03-29 07:42] LABS: HEMATOCRIT 31.9 % (39.0-51.0); MEAN CELL VOLUME 82.2 FL (80.0-100.0); MEAN CORPUSCULAR HEMOGLOBIN 27.6 PG (27.0-34.0); MEAN CORPUSCULAR HGB CONC 33.6 % (32.0-36.0); PLATELET COUNT 170 TH/MM3 (150-450); RED BLOOD COUNT 3.88 MIL/MM3 (4.50-5.90); REVIEW FLAG FINAL; WHITE BLOOD COUNT 10.2 TH/MM3 (4.0-11.0)
[2017-03-29 08:32] LABS: BICARBONATE 22.2 MEQ/L (21.0-32.0); POTASSIUM 3.7 MEQ/L (3.5-5.1)
[2017-03-29] MEDS: ASPIRIN EC 81 MG TABEC PO SCH (08:52)
[2017-03-29] MEDS: MULTIVITAMIN TAB PO SCH (08:52)
[2017-03-29] MEDS: CHOLECALCIFEROL (VIT D3) 5000 UNIT CAP PO SCH (08:52)
[2017-03-29] MEDS: CALCIUM/VITAMIN D 250 MG/125 U TAB PO SCH ×2 (08:53→21:22)
[2017-03-29] MEDS: VALSARTAN 80 MG TAB PO SCH (08:53)
[2017-03-29] MEDS: CYANOCOBALAMIN 1,000 MCG TAB PO SCH (08:53)
[2017-03-29] MEDS: METOPROLOL SUCCINATE 25 MG EXTENDED RELEASE TAB PO SCH (08:53)
[2017-03-29] MEDS: PANTOPRAZOLE SOD 20 MG DELAYED RELEASE TAB PO SCH (08:53)
[2017-03-29] MEDS: METOPROLOL TARTRATE 25 MG TAB PO SCH ×2 (08:54→21:22)
[2017-03-29] MEDS: ENOXAPARIN SODIUM 30 MG/0.3 ML SYRINGE SQ SCH (08:55)
[2017-03-29] MEDS: BRIMONIDINE TARTRATE 0.15% OPHT SOLN 5 ML BTL EACH EYE SCH ×2 (09:00→21:22)
[2017-03-29] MEDS: DORZOLAMIDE/TIMOLOL OPTH SOLN 10 ML BTL EACH EYE SCH ×2 (09:00→21:22)
[2017-03-29] MEDS: SODIUM CHLORIDE 0.9% FLUSH 5 ML FLUSH IVF SCH ×2 (09:00→21:23)
[2017-03-29 09:06] LABS: BLOOD, URINE NEG (NEG); COMMENT (UR) CULT NOT INDICATED; CULTURE IF INDICATED CULT NOT INDICATED; GLUCOSE,URINE NEG (NEG); KETONE, URINE NEG (NEG); NITRITE,URINE NEG (NEG); URINE COLOR LIGHT-YELLOW (YELLW/STRAW)
[2017-03-29] MEDS: SODIUM CHLOR 0.9% 1000 ML INJ 1,000 ML IV SCH ×2 (09:40→19:40)
--- NOTE | 2017-03-29 16:01 | HHI.PR ---
Subjective Remarks Patient had some increased frequency last night with no dysuria No fever or chills pt is feeling better no pain no n/v no sob no chest pain ROS for 10 point system is unremarkable Objective Objective Results - Vital Signs Date Time Temp Pulse Resp B/P (MAP) Pulse Ox O2 Delivery O2 Flow Rate FiO2 03/29/17 13:54 Nasal Cannula 03/29/17 12:00 97.6 96 18 149/90 (109) 95 03/29/17 08:00 98.6 72 20 156/93 (114) 92 03/29/17 05:15 98.1 77 18 152/82 (105) 95 03/29/17 03:51 73 03/29/17 01:40 97.4 76 20 152/82 (105) 95 03/28/17 20:56 98.0 76 28 146/73 (97) 92 03/28/17 20:43 92 03/28/17 16:00 96.5 69 18 115/61 (79) 92 I/O 03/28/17 03/28/17 03/28/17 03/29/17 03/29/17 03/29/17 07:00 15:00 23:00 07:00 15:00 23:00 Intake Total 360 ml Output Total 610 ml 415 ml 1265 ml Balance -250 ml -415 ml -1265 ml Intake Oral 360 ml Output Urine Total 600 ml 375 ml 1225 ml Drainage Total 10 ml 40 ml 40 ml # Voids 2 7 # Bowel Movements 0 Result Diagram: 03/29/17 0710 03/29/17 0710 Other Results Laboratory Tests Test 03/29/17 07:10 03/29/17 08:40 White Blood Count 10.2 Red Blood Count 3.88 Hemoglobin 10.7 Hematocrit 31.9 Mean Corpuscular Volume 82.2 Mean Corpuscular Hemoglobin 27.6 Mean Corpuscular Hemoglobin Concent 33.6 Red Cell Distribution Width 16.0 Platelet Count 170 Mean Platelet Volume 8.1 Blood Urea Nitrogen 12 Creatinine 0.80 Random Glucose 110 Calcium Level 8.4 Sodium Level 132 Potassium Level 3.7 Chloride Level 102 Carbon Dioxide Level 22.2 Anion Gap 8 Estimat Glomerular Filtration Rate 92 Urine Color LIGHT-YELLOW Urine Turbidity CLEAR Urine pH 8.0 Urine Specific [place] 1.009 Urine Protein NEG Urine Glucose (UA) NEG Urine Ketones NEG Urine Occult Blood NEG Urine Nitrite NEG Urine Bilirubin NEG Urine Urobilinogen LESS THAN 2.0 Urine Leukocyte Esterase SMALL Urine RBC 3 Urine WBC 7 Microscopic Urinalysis Comment CULT NOT INDICATED Physical Exam Physical Exam GENERAL: The patient is alert and oriented, lying on bed without any apparent distress at present. VITAL SIGNS: reviewed HEENT: Head is atraumatic, normocephalic. Eyes negative conjunctival icterus. Mouth unremarkable. NECK: Supple. No increased JVD. Central trachea.. CHEST: Clear to auscultation. CARDIOVASCULAR: S1-S2 audible. Unable to hear any S3 gallop. GASTROINTESTINAL: Abdomen soft, nontender, no organomegaly. Positive bowel sounds. MUSCULOSKELETAL: No cyanosis or pedal edema appreciated. Positive dressing on the surgical site. CENTRAL NERVOUS SYSTEM: Alert, oriented. Normal facial features. Moving his toes. SKIN: Warm and dry. PSYCHIATRIC: Appropriate mood and affect. A/P Assessment and Plan 1. Right hip fracture, femoral neck fracture status post right hip bipolar hemiarthroplasty. 2. Hypertension. 3. Vitamin D deficiency. 4. History of esophageal cancer. 5. Right lung mass 7 cm. 6. Gastroesophageal reflux disease. 7. History of BPH status post prostate procedure in 2005. PLAN UA report seen. Patient has a leukocyte esterase is small with WBC positive. Plan for 1 dose of Rocephin Appreciate orthopedic consult and help. Post surgery. Appreciate input okay to discharge as brought Continue home medications as indicated. Vitamin D replacement. Analgesics on as needed basis. Antiemetics on an as needed basis. Wound care as per orthopedics. Deep venous thrombosis prophylaxis as per orthopedics. Postoperative antibiotics as per orthopedics. ct report explained to pt and daughter at bedside on March 28 Condition discussed with the patient and at the bedside. Awaiting for placement in a SNF, as per they are arranging for somebody to stay with him overnight in half-way as well Plan to discharge in a.m. if stable Brittany Javier MD Mar 29, 2017 16:01
[2017-03-29] MEDS: LATANOPROST 0.005% OPHT SOLN 2.5 ML BTL EACH EYE SCH (21:22)
[2017-03-30] VITALS: BP 154/84; PULSE 70; RESP 17; TEMP 98.1; O2SAT 95
[2017-03-30] MEDS: SODIUM CHLOR 0.9% 1000 ML INJ 1,000 ML IV SCH (02:03)
[2017-03-30 04:00] VITALS: BP 158/89; PULSE 82; RESP 17; TEMP 98.8; O2SAT 96
[2017-03-30 08:00] VITALS: BP 159/95; PULSE 79; RESP 18; TEMP 98.1; O2SAT 94
--- NOTE | 2017-03-30 08:56 | PD.ORT.PN ---
Subjective Subjective Remarks No complaints. and daughter at bedside. Doing better today than yesterday Objective Vitals Vital Signs Date Time Temp Pulse Resp B/P (MAP) Pulse Ox O2 Delivery O2 Flow Rate FiO2 03/30/17 04:00 98.8 82 17 158/89 (112) 96 03/30/17 00:00 98.1 70 17 154/84 (107) 95 03/29/17 19:00 99.9 85 17 164/94 (117) 94 03/29/17 16:00 98.7 84 18 158/82 (107) 93 03/29/17 15:06 83 03/29/17 13:54 Nasal Cannula 03/29/17 12:00 97.6 96 18 149/90 (109) 95 I/O 03/29/17 03/29/17 03/29/17 03/30/17 03/30/17 03/30/17 07:00 15:00 23:00 07:00 15:00 23:00 Intake Total 60 ml 480 ml 456 ml Output Total 1265 ml Balance -1265 ml 60 ml 480 ml 456 ml Intake Oral 60 ml 480 ml 456 ml Output Urine Total 1225 ml Drainage Total 40 ml # Voids 7 6 3 8 # Bowel Movements 2 0 0 Result Diagram: 03/29/1710 03/29/17709 Imaging Last 24 hours Impressions Hip and Pelvis X-Ray 03/26/171731 Signed Impressions: Service Date/Time: Sunday, March 26, 2017 17:44 - CONCLUSION: Nondisplaced fracture through the neck of the proximal right femur. Montrell Mcdermott MD Chest X-Ray 03/26/171731 Signed Impressions: Service Date/Time: Sunday, March 26, 2017 17:44 - CONCLUSION: 1. 7 cm area of parenchymal consolidation in the right lower lung. Mass versus infiltrate are the considerations. Recommend a noncontrast CT thorax for further evaluation of this finding. 2. The left lung is grossly clear. Montrell Mcdermott MD Objective Remarks Bilateral upper extremities: Full range of motion neurovascularly intact Left lower extremity: No pain with hip or knee range of motion. Prior surgery to ankle with mild crepitus and some tenderness through range of motion of the ankle. No new pains. Distally intact sensation good capillary refills Right lower extremity: Clean dry dressings intact with drain in place. Knee immobilizer in position. Distally intact sensation with good capillary refills. Strong dorsiflexion\ plantar flexion of foot Incision dry. No calf tenderness Assessment & Plan Ortho Post Op Day #: 3 Problem List: Assessment and Plan Right hip hemiarthroplasty cemented stem POD 3 PLAN: Physical therapy weightbearing as tolerated with posterior hip precautions knee immobilizer when in bed Daily dressing changes Lovenox Incentive spirometry Case management for rehabilitation placement - orthopedically cleared when bed arranged and medically stable Follow-up with Dr. Salazar or PA in 2 weeks Inder Reyes MD Mar 30, 2017 08:56
[2017-03-30] MEDS: BRIMONIDINE TARTRATE 0.15% OPHT SOLN 5 ML BTL EACH EYE SCH (09:00)
[2017-03-30] MEDS: SODIUM CHLORIDE 0.9% FLUSH 5 ML FLUSH IVF SCH (09:00)
[2017-03-30] MEDS: DORZOLAMIDE/TIMOLOL OPTH SOLN 10 ML BTL EACH EYE SCH (09:00)
[2017-03-30] MEDS: CHOLECALCIFEROL (VIT D3) 5000 UNIT CAP PO SCH (09:29)
[2017-03-30] MEDS: PANTOPRAZOLE SOD 20 MG DELAYED RELEASE TAB PO SCH (09:30)
[2017-03-30] MEDS: CALCIUM/VITAMIN D 250 MG/125 U TAB PO SCH (09:30)
[2017-03-30] MEDS: METOPROLOL SUCCINATE 25 MG EXTENDED RELEASE TAB PO SCH (09:30)
[2017-03-30] MEDS: VALSARTAN 80 MG TAB PO SCH (09:30)
[2017-03-30] MEDS: ASPIRIN EC 81 MG TABEC PO SCH (09:31)
[2017-03-30] MEDS: METOPROLOL TARTRATE 25 MG TAB PO SCH (09:31)
[2017-03-30] MEDS: MULTIVITAMIN TAB PO SCH (09:31)
[2017-03-30] MEDS: ENOXAPARIN SODIUM 30 MG/0.3 ML SYRINGE SQ SCH (09:31)
[2017-03-30] MEDS: CYANOCOBALAMIN 1,000 MCG TAB PO SCH (09:31)
--- NOTE | 2017-03-30 09:51 | HHI.PR ---
Subjective Remarks No moreinc frequency of micturation No fever or chills pt is feeling better no pain no n/v no sob no chest pain had good BM ROS for 10 point system is unremarkable Objective Objective Results - Vital Signs Date Time Temp Pulse Resp B/P (MAP) Pulse Ox O2 Delivery O2 Flow Rate FiO2 03/30/17 08:00 98.1 79 18 159/95 (116) 94 03/30/17 04:00 98.8 82 17 158/89 (112) 96 03/30/17 00:00 98.1 70 17 154/84 (107) 95 03/29/17 19:00 99.9 85 17 164/94 (117) 94 03/29/17 16:00 98.7 84 18 158/82 (107) 93 03/29/17 15:06 83 03/29/17 13:54 Nasal Cannula 03/29/17 12:00 97.6 96 18 149/90 (109) 95 I/O 03/29/17 03/29/17 03/29/17 03/30/17 03/30/17 03/30/17 06:59 14:59 22:59 06:59 14:59 22:59 Intake Total 60 ml 480 ml 456 ml Output Total 1265 ml Balance -1265 ml 60 ml 480 ml 456 ml Intake Oral 60 ml 480 ml 456 ml Output Urine Total 1225 ml Drainage Total 40 ml # Voids 7 6 3 8 # Bowel Movements 2 0 0 Result Diagram: 03/29/17 0710 03/29/17 0710 Physical Exam Physical Exam GENERAL: The patient is alert and oriented, lying on bed without any apparent distress at present. VITAL SIGNS: reviewed HEENT: Head is atraumatic, normocephalic. Eyes negative conjunctival icterus. Mouth unremarkable. NECK: Supple. No increased JVD. Central trachea.. CHEST: Clear to auscultation. CARDIOVASCULAR: S1-S2 audible. Unable to hear any S3 gallop. GASTROINTESTINAL: Abdomen soft, nontender, no organomegaly. Positive bowel sounds. MUSCULOSKELETAL: No cyanosis or pedal edema appreciated. Positive dressing on the surgical site. CENTRAL NERVOUS SYSTEM: Alert, oriented. Normal facial features. Moving his toes. SKIN: Warm and dry. PSYCHIATRIC: Appropriate mood and affect. A/P Assessment and Plan 1. Right hip fracture, femoral neck fracture status post right hip bipolar hemiarthroplasty. 2. Hypertension. 3. Vitamin D deficiency. 4. History of esophageal cancer. 5. Right lung mass 7 cm. 6. Gastroesophageal reflux disease. 7. History of BPH status post prostate procedure in 2005. PLAN UA report seen. symtoms resolved will send with po abx for few days Appreciate orthopedic consult and help. Post surgery. Appreciate input okay to discharge as brought Continue home medications as indicated. Vitamin D replacement. Analgesics on as needed basis. Antiemetics on an as needed basis. Wound care as per orthopedics. Deep venous thrombosis prophylaxis as per orthopedics. Postoperative antibiotics as per orthopedics. ct report explained to pt and daughter at bedside on March 28 Condition discussed with the patient and at the bedside. for placement in a SNF today Plan to discharge today as pt is stable Brittany Javier MD Mar 30, 2017 09:51
[2017-03-30] MEDS ORDERED: CEFU1TAB42 PO (09:56)
== END 2017-03-30 12:19 | DRG 470 ==
LOC: NEPC 17:21 → NEDA 20:21 → N06A 21:26
PROVIDERS: ADMIT Specialist; ATTEND Specialist
PROC: 0SRR019 Replacement of Right Hip Joint, Femoral Surface with Metal Synthetic Substitute, Cemented, Open Approach (ICD-10-PCS; principal; 2017-03-27 07:42)
DX: S72.001A Fracture of unspecified part of neck of right femur, initial encounter for closed fracture (principal); I10 Essential (primary) hypertension; W01.0XXA Fall on same level from slipping, tripping and stumbling without subsequent striking against object, initial encounter; K21.9 Gastro-esophageal reflux disease without esophagitis; H91.90 Unspecified hearing loss, unspecified ear; H40.9 Unspecified glaucoma; E55.9 Vitamin D deficiency, unspecified; T40.605A Adverse effect of unspecified narcotics, initial encounter; R41.0 Disorientation, unspecified; R91.8 Other nonspecific abnormal finding of lung field; Z79.82 Long term (current) use of aspirin; Z85.820 Personal history of malignant melanoma of skin; Z85.01 Personal history of malignant neoplasm of esophagus
CPT/HCPCS: 70450; 71010; 71250; 73502; 80048; 80053; 81001; 82306; 85025; 85027; 85610; 85730; 86850; 86900; 86901; 88305; 88311; 90471; 90714; 93005; J0131; J0690; J1580; J1650; J2270; J3370; J7030; J7040

== ENCOUNTER 2017-03-31 16:33 | Inpatient (IN) | payer MEDICARE ==
[~2017-03-31] VITALS: Ht 188 cm; Wt 91.6 kg
[~2017-03-31 16:33] MED LIST changes: +ALPH0.1S EACH EYE; +ALPH1CAP PO; +ASPI1TAB91 PO; -ASPI81 PO; -B-1210005 OR; +CALCTAB19 PO; +CALCTAB38 PO; +CEFU1TAB42 PO; -CENTTAB9 PO; +CYAN1TAB24 PO; +DORZ2SOL15 EACH EYE; +ERGO1CAP30 PO; -FISH1000 PO; +FISH100020 PO; +FLAX1000 PO; +HYDR-3580 PO; +LUMI0.01 EACH EYE; +LUTE6TAB2 PO; +MELA0.02 PO; -MELA3CAP2 PO; +METO25TA6 PO; +MSM PO; +MULT1TAB64 PO; -OMEP20CA5 PO; +OMEP20TA PO; -OYST500T71 PO; +VALS1TAB64 PO; +WALKER/ADULT/FO1 MIS; +XARE10TA PO; +[UNRECOGNIZED DRUG - OTHER] PO
[2017-03-31 18:25] VITALS: BP 133/75; PULSE 108; RESP 16; TEMP 98.1
[2017-03-31] MEDS ORDERED: SODIUM CHLOR 0.9% 1000 ML INJ 1,000 ML IV SCH (18:26)
[2017-03-31] MEDS ORDERED: MORPHINE SULFATE 4 MG/ML INJ IV PUSH ONE (18:30)
--- NOTE | 2017-03-31 18:35 | PD ---
HPI Chief Complaint: Abdominal Pain Time Seen by Provider: 18:20 Travel History International Travel<30 days: No Contact w/Intl Traveler<30days: No Traveled to known affect area: No History of Present Illness HPI 86-year-old male that presents to the ED via ambulance for evaluation of left lower quadrant abdominal pain. Patient was recently seen here for evaluation of her right hip fracture to require surgery. He was released to the rehabilitation facility about 2 days ago. Today he was doing some physical therapy and he noted that he had some left lower quadrant pain. Per patient his last vomiting was 2 days ago and was normal. No bleeding. No gas issues. He states that the abdomen is very sensitive to touch in the left lower quadrant. No nausea or vomiting. No shortness of breath or chest pain. Pain stays mainly on the left quadrant. No history of other injuries. No history of fall in the area. He does take blood thinners including xeralto. No fevers chills or sweats. No allergies to medication. Pain per patient is 8 out of 10 with touch and pressure-like. This started about 2 hours ago before coming. PFSH Past Medical History Hx Anticoagulant Therapy: Yes (ASA) Arthritis: Yes Cancer: Yes (MELANOMA) Diminished Hearing: No GERD: Yes Glaucoma: Yes Genitourinary: Yes (ENLARGED PROSTATE) Hypertension: Yes Musculoskeletal: Yes Neurologic: Yes Respiratory: No Migraines: Yes Past Surgical History Abdominal Surgery: Yes (ESOPHAGOGASTRECTOMY 07/1994, HERNIA 1995) Appendectomy: Yes (1948) Eye Surgery: Yes (1991) Genitourinary Surgery: Yes (PROSTATE 07/06/2005) Other Surgery: Yes (MELANOMA REMOVED CHEST 11/1993, BACK/ RT SHOULDER 02/11/2004 ) Social History Alcohol Use: No Tobacco Use: No Substance Use: No Allergies-Medications (Allergen,Severity, Reaction): Coded Allergies: No Known Allergies (Verified , 03/26/17) Reported Meds & Prescriptions Reported Meds & Active Scripts Active Calcium 600+D 200 (Calcium Carbonate-Vitamin D) 600-200 Mg-Unit Tab 1 Tab PO BID Ergocalciferol 50,000 Unit Cap 50,000 Units PO Q7D Xarelto (Rivaroxaban) 10 Mg Tab 10 Mg PO DAILY Hydrocodone-Acetaminophen 7.5-325 mg Tab 1 Tab PO Q4H PRN Walker/Adult/Folding (Device) 1 Mis Mis Ea .ROUTE DIRECTED Reported Ceftin (Cefuroxime Axetil) 250 Mg Tab 500 Mg PO BID 5 Days Lumigan Opth Drops (Bimatoprost) 0.01% Soln 1 Drop EACH EYE HS Alphagan P Opth Drops (Brimonidine Tartrate) 0.1% Soln 1 Drop EACH EYE BID Dorzolamide-Timolol Opth Drops 22.3-6.8 Mg/Ml Soln 1 Drop EACH EYE BID Melatonin 3 Mg Tab 3 Mg PO HS [Hydraplenish W/Msm] 1 Tab PO BID Lutein 6 Mg Tab 24 Mg PO DAILY Valsartan 80 Mg Tab 80 Mg PO DAILY Calcium 600+D (Calcium Carbonate-Vitamin D) 600-400 Mg-Unit Tab 1 Tab PO DAILY Aspirin Adult Low Strength (Aspirin) 81 Mg Tabdr 81 Mg PO DAILY Omeprazole 20 Mg Tab 20 Mg PO DAILY Metoprolol Succinate ER 24 HR (Metoprolol Succinate) 25 Mg Tab 25 Mg PO DAILY Centrum Silver Men Tablet (Multivit-Min/FA/Lycopen/Lutein) 300 Mcg-600 Mcg-300 Mcg Tablet 1 Tab PO DAILY Flaxseed Oil (Flaxseed (Linseed)) 1,000 Mg Cap 1,000 Mg PO DAILY Fish Oil 1000 mg ([place]-3 Fatty Acids) 300 Mg-1,000 Mg Cap 1,000 Mg PO DAILY B12 (Cyanocobalamin) 1,000 Mcg Tab 1,000 Mcg PO DAILY Alpha Lipoic Acid 200 Mg Cap 200 Mg PO DAILY Review of Systems Except as stated in HPI: all other systems reviewed are Neg Physical Exam Narrative GENERAL: SKIN: Warm and dry. HEAD: Atraumatic. Normocephalic. EYES: Pupils equal and round. No scleral icterus. No injection or drainage. ENT: No nasal bleeding or discharge. Mucous membranes pink and moist. Tongue is midline. No uvula deviation. NECK: Trachea midline. No JVD. CARDIOVASCULAR: Regular rate and rhythm. No murmurs, S3, S4. RESPIRATORY: No accessory muscle use. Clear to auscultation. Breath sounds equal bilaterally. GASTROINTESTINAL: Abdomen soft, LLQ abdominal pain with light and deep palpation , nondistended. Hepatic and splenic margins not palpable. MUSCULOSKELETAL: Extremities without clubbing, cyanosis, or edema. No obvious deformities. Full range of motion of the upper and lower extremities bilaterally. 2+ pulses bilaterally. NEUROLOGICAL: Awake and alert. No obvious cranial nerve deficits. Motor grossly within normal limits. Five out of 5 muscle strength in the arms and legs. Normal speech. PSYCHIATRIC: Appropriate mood and affect; insight and judgment normal. Data Data Last Documented VS Vital Signs Date Time Temp Pulse Resp B/P (MAP) Pulse Ox O2 Delivery O2 Flow Rate FiO2 03/31/17 20:22 18 03/31/17 18:25 98.1 108 133/75 (94) Orders Orders Complete Blood Count With Diff (03/31/17:) Comprehensive Metabolic Panel (03/31/17) Lipase (03/31/17) Lactic Acid (03/31/17) Prothrombin Time / Inr (Pt) (03/31/17) Act Partial Throm Time (Ptt) (03/31/17) Urinalysis - C+S If Indicated (03/31/17:) Ct Abd/Pel W Iv Contrast(Rout) (03/31/17 18:) Iv Access Insert/Monitor (03/31/17 18) Ecg Monitoring (03/31/17) Oximetry (03/31/17:) Morphine Inj (Morphine Inj) (03/31/17 18:30) Sodium Chlor 0.9% 1000 Ml Inj (Ns 1000 M (03/31/17 18:26) Urine Culture (03/31/17 19:25) Ceftriaxone Inj (Rocephin Inj) (03/31/17 20:30) Iohexol 350 Inj (Omnipaque 350 Inj) (03/31/17 20:46) Hydromorphone Pf Inj (Dilaudid Pf Inj) (03/31/17 21:00) Ondansetron Inj (Zofran Inj) (03/31/17 21:00) ^ Lab Follow Up (03/31/17 21:25) Prothrombin Time / Inr (Pt) (03/31/17 21:25) Type And Screen (03/31/17 21:25) Prothrombin Complex Conc Inj (Kcentra In (03/31/17 22:00) Binder,Surg Abdominal Xxl Ea (03/31/17 21:25) Admit Order (Ed Use Only) (03/31/17 21:42) Labs Laboratory Tests Test 03/31/17 19:25 White Blood Count 16.1 TH/MM3 Red Blood Count 4.16 MIL/MM3 Hemoglobin 11.4 GM/DL Hematocrit 34.7 % Mean Corpuscular Volume 83.5 FL Mean Corpuscular Hemoglobin 27.3 PG Mean Corpuscular Hemoglobin Concent 32.7 % Red Cell Distribution Width 16.0 % Platelet Count 282 TH/MM3 Mean Platelet Volume 7.2 FL Neutrophils (%) (Auto) 83.0 % Lymphocytes (%) (Auto) 6.9 % Monocytes (%) (Auto) 9.3 % Eosinophils (%) (Auto) 0.5 % Basophils (%) (Auto) 0.3 % Neutrophils # (Auto) 13.3 TH/MM3 Lymphocytes # (Auto) 1.1 TH/MM3 Monocytes # (Auto) 1.5 TH/MM3 Eosinophils # (Auto) 0.1 TH/MM3 Basophils # (Auto) 0.0 TH/MM3 CBC Comment DIFF FINAL Differential Comment Prothrombin Time 11.9 SEC Prothromb Time International Ratio 1.1 RATIO Activated Partial Thromboplast Time 30.1 SEC Urine Color YELLOW Urine Turbidity HAZY Urine pH 7.0 Urine Specific [place] 1.027 Urine Protein 30 mg/dL Urine Glucose (UA) NEG mg/dL Urine Ketones 10 mg/dL Urine Occult Blood SMALL Urine Nitrite NEG Urine Bilirubin NEG Urine Urobilinogen LESS THAN 2.0 MG/DL Urine Leukocyte Esterase LARGE Urine RBC 18 /hpf Urine WBC 52 /hpf Urine Squamous Epithelial Cells <1 /hpf Urine Calcium Oxalate Crystals RARE /hpf Urine Amorphous Sediment RARE Urine Bacteria RARE /hpf Urine Mucus FEW /lpf Microscopic Urinalysis Comment CULTURE INDICATED Blood Urea Nitrogen 15 MG/DL Creatinine 0.84 MG/DL Random Glucose 157 MG/DL Total Protein 6.5 GM/DL Albumin 2.7 GM/DL Calcium Level 8.8 MG/DL Alkaline Phosphatase 64 U/L Aspartate Amino Transf (AST/SGOT) 39 U/L Alanine Aminotransferase (ALT/SGPT) 56 U/L Total Bilirubin 1.4 MG/DL Sodium Level 132 MEQ/L Potassium Level 3.6 MEQ/L Chloride Level 100 MEQ/L Carbon Dioxide Level 19.6 MEQ/L Anion Gap 12 MEQ/L Estimat Glomerular Filtration Rate 87 ML/MIN Lactic Acid Level 1.7 mmol/L Lipase 130 U/L [facility] Medical Decision Making Medical Screen Exam Complete: Yes Emergency Medical Condition: Yes Medical Record Reviewed: Yes Interpretation(s) CBC & BMP Diagram 03/31/17 19:25 Total Protein 6.5, Albumin 2.7 L, Calcium Level 8.8, Alkaline Phosphatase 64, Aspartate Amino Transf (AST/SGOT) 39 H, Alanine Aminotransferase (ALT/SGPT) 56, Total Bilirubin 1.4 H PTT within normal limits. UA shows UTI CT of the abdomen show rectal abdominal possible bleed versus pseudo-aneurysm. [place] to be more bleed. Differential Diagnosis Acute abdomen versus obstruction versus diverticulitis versus constipation versus muscle strain versus muscle spasm Narrative Course 86-year-old male that presents to the ED for evaluation of left lower quadrant abdominal pain. Patient was properly examined and was found to have signs and symptoms of unclear etiology. Labs and imaging were ordered. Labs and imaging showed what appears to be rectal muscle bleed. Unclear etiology. Patient and family did tell us that apparently he did have a small fall 2 days ago but patient did not actually injure that area but they have noticed bruising to the area since. Patient takes for prophylactic treatment of DVTs. He does not have a history of A. fib. Urine did show UTI. Case was immediately discussed with my attending Dr. Lam who evaluated the patient and spoke with Dr. Mendenhall for Gen. surgery who will consult on the patient will admitted. Wants us to admit and do Kecentra as well as abdominal binder. My attending spoke with the patient and family for in agreement with admission. Case was discussed with Shekhar Leyva PA-C who agrees to admission. Diagnosis Primary Impression: Bleeding Additional Impression: UTI (urinary tract infection) Qualified Codes: N30.01 - Acute cystitis with hematuria Admitting Information Admitting Physician Requests: Admit Ramos Piña Mar 31, 2017 18:35
[2017-03-31 19:43] LABS: AUTOMATED NEUTROPHIL # 13.3 TH/MM3 (1.8-7.7); BASOPHIL % 0.3 % (0.0-2.0); EOSINOPHIL # 0.1 TH/MM3 (0-0.4); EOSINOPHIL % 0.5 % (0.0-4.0); HEMATOCRIT 34.7 % (39.0-51.0); HEMO FLAGS DIFF FINAL; LYMPH % 6.9 % (9.0-44.0); LYMPHOCYTE # 1.1 TH/MM3 (1.0-4.8); MEAN CELL VOLUME 83.5 FL (80.0-100.0); MEAN CORPUSCULAR HEMOGLOBIN 27.3 PG (27.0-34.0); MEAN CORPUSCULAR HGB CONC 32.7 % (32.0-36.0); MONO % 9.3 % (0.0-8.0); PLATELET COUNT 282 TH/MM3 (150-450); RED BLOOD COUNT 4.16 MIL/MM3 (4.50-5.90); WHITE BLOOD COUNT 16.1 TH/MM3 (4.0-11.0)
[2017-03-31 19:49] LABS: BACTERIA, URINE RARE /hpf; BLOOD, URINE SMALL (NEG); CALCIUM OXALATE CRYSTALS,URINE RARE /hpf; COMMENT (UR) CULTURE INDICATED; CULTURE IF INDICATED CULTURE INDICATED; GLUCOSE,URINE NEG (NEG); KETONE, URINE 10 mg/dL (NEG); MUCUS URINE FEW /lpf (OCC); NITRITE,URINE NEG (NEG); SQUAMOUS EPITHELIAL CELL URINE <1 /hpf (0-5); URINE COLOR YELLOW (YELLW/STRAW)
[2017-03-31 19:52] LABS: APTT (PATIENT) 30.1 SEC (24.3-30.1); INTERNATIONAL NORMALIZED RATIO 1.1 RATIO; PROTHROMBIN TIME - PATIENT 11.9 SEC (9.8-11.6)
[2017-03-31 20:00] VITALS: BP 134/69; PULSE 92; RESP 18; O2SAT 96
[2017-03-31 20:09] LABS: ANION GAP 12 MEQ/L (5-15); AST (GOT) 39 U/L (15-37); BICARBONATE 19.6 MEQ/L (21.0-32.0); BLOOD UREA NITROGEN 15 MG/DL (7-18); CHLORIDE 100 MEQ/L (98-107); GLOMERULAR FILTRATION RATE 87 ML/MIN (>89); POTASSIUM 3.6 MEQ/L (3.5-5.1); SODIUM (NA) 132 MEQ/L (136-145)
[2017-03-31 20:10] LABS: ALT (GPT) 56 U/L (12-78)
[2017-03-31 20:12] LABS: ALKALINE PHOSPHATASE 64 U/L (45-117); TOTAL BILIRUBIN ADULT 1.4 MG/DL (0.2-1.0)
[2017-03-31] MEDS ORDERED: cefTRIAXone INJ 1,000 MG in SODIUM CHLORIDE 0.9% INJ 100 ML IV ONE (20:30)
[2017-03-31] MEDS ORDERED: IOHEXOL 350 MG/ML 10 ML VIAL (for RAD DIAG) IVCONTRAST ONE (20:46)
[2017-03-31] MEDS ORDERED: ONDANSETRON HCL 4 MG/2 ML VIAL IV PUSH ONE (21:00)
[2017-03-31] MEDS ORDERED: HYDROmorphone HCL PF 1 MG/ML VIAL IV PUSH ONE (21:00)
--- NOTE | 2017-03-31 21:33 | RADRPT ---
EXAM DATE/TIME: 03/31/2017 20:36 [place] COMPARISON: No previous studies available for comparison. INDICATIONS : Abdominal pain. IV CONTRAST: 90 cc Omnipaque 350 (iohexol) IV ORAL CONTRAST: No oral contrast ingested. RADIATION DOSE: 15.66 CTDIvol (mGy) MEDICAL HISTORY : Hypertension. Melanoma. SURGICAL HISTORY : Esophagastrectomy. ENCOUNTER: Initial ACUITY: 1 day PAIN SCALE: 6/10 LOCATION: cranial TECHNIQUE: Volumetric scanning of the abdomen and pelvis was performed. Using automated exposure control and ad justment of the mA and/or kV according to patient size, radiation dose was kept as low as reasonably achievable to obtain optimal diagnostic quality images. DICOM format image data is available electro nically for review and comparison. FINDINGS: LOWER LUNGS: A gastric pull-through following esophagectomy is identified. There is consolidating infiltrate in th e right lung base adjacent to the intrathoracic stomach. LIVER: Homogeneous density without lesion. There is no dilation of the biliary tree. Noncalcified gallstone is identified in the gallbladder. There is no evidence of distention or wall thickening. SPLEEN: Normal size without lesion. PANCREAS: Within normal limits. KIDNEYS: Normal in size and shape. There is no mass, stone or hydronephrosis. ADRENAL GLANDS: Within normal limits. VASCULAR: There is no aortic aneurysm. BOWEL/MESENTERY: The stomach, small bowel, and colon demonstrate no acute abnormality. There is no free intraperitone al air or fluid. ABDOMINAL WALL: Left-sided anterior abdominal wall hematoma throughout the rectus muscle is identified. Superiorly wi thin the rectus muscle there is contrast pooling outlining what appears to be either active bleeding or pseudoaneurysm formation. The hematoma measures 4.5 cm in diameter. The hematoma extends from the subcostal region to just above the pubic symphysis. RETROPERITONEUM: There is no lymphadenopathy. BLADDER: No wall thickening or mass. REPRODUCTIVE: Within normal limits. INGUINAL: There is no lymphadenopathy or hernia. MUSCULOSKELETAL: Right hip has been replaced. CONCLUSION: 1. Large a left-sided rectus abdominous muscle hematoma with evidence of focal active bleeding or pse udoaneurysm formation just below the rib cage. 2. Right lower lobe consolidating airspace disease. 3. Noncalcified gallstones 4. Esophagogastrostomy status post esophagectomy. 5. Status post right hip replacement Keshawn Davison MD on March 31, 2017 at 21:17 Board Certified Radiologist. This report was verified electronically.
--- NOTE | 2017-03-31 21:37 | PD ---
Physical Exam Narrative PATIENT SEEN PERSONALLY GENERAL: SKIN: Warm and dry. RT HIP INCISION HEALING WELL HEAD: Atraumatic. Normocephalic. EYES: Pupils equal and round. No scleral icterus. No injection or drainage. ENT: No nasal bleeding or discharge. Mucous membranes pink and moist. NECK: Trachea midline. No JVD. CARDIOVASCULAR: Regular rate and rhythm. RESPIRATORY: No accessory muscle use. Clear to auscultation. Breath sounds equal bilaterally. GASTROINTESTINAL: Abdomen soft, nondistended. NOTED TTP TO LUQ/LLQ, PATIENT HAS A SMALL AREA OF ECHYMOSIS UP NEAR LUQ ANTERIORLY. BOWEL SOUNDS ARE PRESENT , NO REBOUND/GUARDING/RIGIDITY MUSCULOSKELETAL: Extremities without clubbing, cyanosis, or edema. No obvious deformities. NEUROLOGICAL: Awake and alert. No obvious cranial nerve deficits. Motor grossly within normal limits. Five out of 5 muscle strength in the arms and legs. Normal speech. PSYCHIATRIC: Appropriate mood and affect; insight and judgment normal. Data Data Last Documented VS Vital Signs Date Time Temp Pulse Resp B/P (MAP) Pulse Ox O2 Delivery O2 Flow Rate FiO2 03/31/17 20:22 18 03/31/17 18:25 98.1 108 133/75 (94) Orders Orders Complete Blood Count With Diff (03/31/17 18:) Comprehensive Metabolic Panel (03/31/17:) Lipase (03/31/17:) Lactic Acid (03/31/17:) Prothrombin Time / Inr (Pt) (03/31/17 18:) Act Partial Throm Time (Ptt) (03/31/17:) Urinalysis - C+S If Indicated (03/31/17 18:) Ct Abd/Pel W Iv Contrast(Rout) (03/31/17 18:) Iv Access Insert/Monitor (03/31/17 18:) Ecg Monitoring (03/31/17:) Oximetry (03/31/17:) Morphine Inj (Morphine Inj) (03/31/17 18:30) Sodium Chlor 0.9% 1000 Ml Inj (Ns 1000 M (03/31/17 18:26) Urine Culture (03/31/17 19:25) Ceftriaxone Inj (Rocephin Inj) (03/31/17 20:30) Iohexol 350 Inj (Omnipaque 350 Inj) (03/31/17 20:46) Hydromorphone Pf Inj (Dilaudid Pf Inj) (03/31/17 21:00) Ondansetron Inj (Zofran Inj) (03/31/17 21:00) ^ Lab Follow Up (03/31/17 21:25) Prothrombin Time / Inr (Pt) (03/31/17 21:25) Type And Screen (03/31/17 21:25) Prothrombin Complex Conc Inj (Kcentra In (03/31/17 22:00) Binder,Surg Abdominal Xxl Ea (03/31/17 21:25) Labs Laboratory Tests Test 03/31/17 19:25 White Blood Count 16.1 TH/MM3 Red Blood Count 4.16 MIL/MM3 Hemoglobin 11.4 GM/DL Hematocrit 34.7 % Mean Corpuscular Volume 83.5 FL Mean Corpuscular Hemoglobin 27.3 PG Mean Corpuscular Hemoglobin Concent 32.7 % Red Cell Distribution Width 16.0 % Platelet Count 282 TH/MM3 Mean Platelet Volume 7.2 FL Neutrophils (%) (Auto) 83.0 % Lymphocytes (%) (Auto) 6.9 % Monocytes (%) (Auto) 9.3 % Eosinophils (%) (Auto) 0.5 % Basophils (%) (Auto) 0.3 % Neutrophils # (Auto) 13.3 TH/MM3 Lymphocytes # (Auto) 1.1 TH/MM3 Monocytes # (Auto) 1.5 TH/MM3 Eosinophils # (Auto) 0.1 TH/MM3 Basophils # (Auto) 0.0 TH/MM3 CBC Comment DIFF FINAL Differential Comment Prothrombin Time 11.9 SEC Prothromb Time International Ratio 1.1 RATIO Activated Partial Thromboplast Time 30.1 SEC Urine Color YELLOW Urine Turbidity HAZY Urine pH 7.0 Urine Specific [place] 1.027 Urine Protein 30 mg/dL Urine Glucose (UA) NEG mg/dL Urine Ketones 10 mg/dL Urine Occult Blood SMALL Urine Nitrite NEG Urine Bilirubin NEG Urine Urobilinogen LESS THAN 2.0 MG/DL Urine Leukocyte Esterase LARGE Urine RBC 18 /hpf Urine WBC 52 /hpf Urine Squamous Epithelial Cells <1 /hpf Urine Calcium Oxalate Crystals RARE /hpf Urine Amorphous Sediment RARE Urine Bacteria RARE /hpf Urine Mucus FEW /lpf Microscopic Urinalysis Comment CULTURE INDICATED Blood Urea Nitrogen 15 MG/DL Creatinine 0.84 MG/DL Random Glucose 157 MG/DL Total Protein 6.5 GM/DL Albumin 2.7 GM/DL Calcium Level 8.8 MG/DL Alkaline Phosphatase 64 U/L Aspartate Amino Transf (AST/SGOT) 39 U/L Alanine Aminotransferase (ALT/SGPT) 56 U/L Total Bilirubin 1.4 MG/DL Sodium Level 132 MEQ/L Potassium Level 3.6 MEQ/L Chloride Level 100 MEQ/L Carbon Dioxide Level 19.6 MEQ/L Anion Gap 12 MEQ/L Estimat Glomerular Filtration Rate 87 ML/MIN Lactic Acid Level 1.7 mmol/L Lipase 130 U/L [facility] Medical Record Reviewed: Yes Supervised Visit with ABDULLAHI: Yes Narrative Course D/W FAMILY WHO STATED THAT WHILE PATIENT WAS IN REHAB HE WAS ON A "CRANK BED" AND THE STAFF KEPT CRANKING BED WHICH EVENTUALLY BROKE AND BED FELL STRAIGHT DOWN TO THE FLOOR. AFTER THIS EVENT AND PHYSICAL THERAPY THE FAMILY MEMBERS NOTED SOME BRUISING TO HIS ABDOMEN Physician Communication Physician Communication D/W DR NAPOLES (GEN SURGERY) WHO AGREED WITH PLAN OF ADMISSION, KCENTRA USE, ABDOMINAL BINDER, OBSERVATION AND REPEAT LABS. Diagnosis Primary Impression: LEFT RECTUS SHEATH HEMATOMA Admitting Information Admitting Physician Requests: Admit Manan Lam MD Mar 31, 2017 21:37
[2017-03-31 22:00] VITALS: BP 118/66; PULSE 84; RESP 18; O2SAT 93; O2SAT 94
[2017-03-31] MEDS ORDERED: ACETAMINOPHEN 325 MG TAB PO PRN (22:00)
[2017-03-31] MEDS ORDERED: SENNOSIDES 8.6 MG TAB PO PRN (22:00)
[2017-03-31] MEDS ORDERED: MAGNESIUM HYDROXIDE SUSP 30 ML CUP PO PRN (22:00)
[2017-03-31] MEDS ORDERED: LACTULOSE SYRUP 20 GM/30 ML CUP PO PRN (22:00)
[2017-03-31] MEDS ORDERED: NALOXONE HCL 0.4 MG/ML AMP IV PUSH PRN (22:00)
[2017-03-31] MEDS ORDERED: PROTHROMBIN COMPLEX IV ONE (22:00)
[2017-03-31] MEDS ORDERED: BISACODYL 10 MG SUPP RECTAL PRN (22:00)
[2017-03-31] MEDS ORDERED: ONDANSETRON HCL 4 MG/2 ML VIAL IVP PRN (22:00)
[2017-03-31] MEDS ORDERED: SODIUM CHLORIDE 0.9% FLUSH 10 ML FLUSH IV FLUSH PRN (22:00)
[2017-03-31] MEDS ORDERED: AZITHROMYCIN INJ 500 MG in SODIUM CHLOR 0.9% 250 ML INJ 250 ML IV ONE (22:30)
[2017-03-31] MEDS: SODIUM CHLOR 0.9% 1000 ML INJ 1,000 ML IV SCH (23:22)
[2017-03-31 23:48] VITALS: BP 163/74
[2017-03-31 23:51] LABS: PROTHROMBIN TIME - PATIENT 10.8 SEC (9.8-11.6)
[2017-04-01] VITALS (8 sets, daily range): BP systolic 95–130; BP diastolic 57–62; PULSE 84–102; RESP 16–20; TEMP 97.7–99.1; O2SAT 91–95
[2017-04-01 04:41] LABS: AUTOMATED NEUTROPHIL # 10.9 TH/MM3 (1.8-7.7); BASOPHIL % 0.3 % (0.0-2.0); EOSINOPHIL # 0.1 TH/MM3 (0-0.4); EOSINOPHIL % 0.4 % (0.0-4.0); HEMATOCRIT 26.9 % (39.0-51.0); HEMO FLAGS DIFF FINAL; LYMPH % 8.3 % (9.0-44.0); LYMPHOCYTE # 1.1 TH/MM3 (1.0-4.8); MEAN CELL VOLUME 83.7 FL (80.0-100.0); MEAN CORPUSCULAR HEMOGLOBIN 27.3 PG (27.0-34.0); MEAN CORPUSCULAR HGB CONC 32.6 % (32.0-36.0); MONO % 9.7 % (0.0-8.0); NEUT % 81.3 % (16.0-70.0); PLATELET COUNT 235 TH/MM3 (150-450); RED BLOOD COUNT 3.21 MIL/MM3 (4.50-5.90); RED CELL DISTRIBUTION WIDTH 16.4 % (11.6-17.2); WHITE BLOOD COUNT 13.4 TH/MM3 (4.0-11.0)
[2017-04-01 04:56] LABS: PROTHROMBIN TIME - PATIENT 10.7 SEC (9.8-11.6)
[2017-04-01 05:31] LABS: ALKALINE PHOSPHATASE 57 U/L (45-117); ALT (GPT) 54 U/L (12-78); ANION GAP 9 MEQ/L (5-15); AST (GOT) 33 U/L (15-37); BICARBONATE 20.8 MEQ/L (21.0-32.0); BLOOD UREA NITROGEN 20 MG/DL (7-18); CHLORIDE 104 MEQ/L (98-107); GLOMERULAR FILTRATION RATE 65 ML/MIN (>89); POTASSIUM 3.8 MEQ/L (3.5-5.1); SODIUM (NA) 134 MEQ/L (136-145); TOTAL BILIRUBIN ADULT 0.7 MG/DL (0.2-1.0)
[2017-04-01] MEDS ORDERED: MORPHINE SULFATE 4 MG/ML INJ IV PRN (07:00)
[2017-04-01] MEDS: SODIUM CHLORIDE 0.9% FLUSH 10 ML FLUSH IV FLUSH SCH ×2 (07:08→21:31)
[2017-04-01] MEDS: DOCUSATE SODIUM 50 MG/SENNA 8.6 MG TAB PO SCH ×2 (07:17→21:31)
[2017-04-01] MEDS: SODIUM CHLOR 0.9% 1000 ML INJ 1,000 ML IV SCH (07:31)
[2017-04-01] MEDS ORDERED: CALCIUM CARBONATE VITAMIN D PO SCH (09:45)
[2017-04-01] MEDS ORDERED: ACETAMINOPHEN/HYDROcodone 325 MG/7.5 MG TAB PO PRN (09:45)
[2017-04-01] MEDS ORDERED: NON-FORMULARY DRUG (Alpha Lipoic Acid 200 MG) PO SCH (09:45)
[2017-04-01] MEDS: MORPHINE SULFATE 2 MG/ML INJ IV PRN ×4 (09:49→19:05)
--- NOTE | 2017-04-01 10:16 | MH ---
cc: KARLO KIRKPATRICK DATE OF ADMISSION: 03/31/2017 DATE OF : 1930 REASON FOR ADMISSION Pain in the left lower abdomen. HISTORY OF PRESENT ILLNESS The patient is a very pleasant 86-year male who is known to me from past admission when he fell and broke his head for which he had a bipolar hemiarthroplasty, was put on blood thinner and sent home. During the last admission the patient had a CT scan of the lung for a questionable mass which was noted on CT scan. The patient was discharged to a rehab center on relto. Yesterday he was doing some physical therapy and noted to have some left lower quadrant pain, severe in nature. He was brought to the ER. When evaluated in the ER he was found to have a left rectus muscle sheath hematoma, or which the patient was recommended admission and anticoagulant was put on hold. At present the patient is seen with his and daughter at the bedside. The patient has no pain because of the morphine. He denies any other associated symptoms. There is no nausea, vomiting, diarrhea or constipation. There is no genitourinary symptoms. There is no chest pain, diaphoresis, palpitations, cough or shortness of breath. The patient has no fever or chills. As per the patient the pain medication is helping him. PAST MEDICAL HISTORY, PAST SURGICAL HISTORY, SOCIAL HISTORY, ALLERGIES: Please see the last H&P of March 27, 2017. REVIEW OF SYSTEMS As described above in the history of present illness, otherwise negative for 10 systems. MEDICATIONS Medications are reviewed. Please see the EMR. PHYSICAL EXAMINATION GENERAL: The patient is alert and oriented x3, well-built, well-nourished, lying on the bed without any apparent distress. VITAL SIGNS: The patient is afebrile, pulse 84, blood pressure 114/60, pulse 92. HEENT: Head is atraumatic, normocephalic. Eyes negative. No icterus. Mouth unremarkable. NECK: Supple. No increased JVD. Negative thyromegaly. Central trachea. LUNGS: Clear to auscultation. HEART: S1, S2 audible. Unable to hear any S3 gallop. ABDOMEN: Soft. Tender, mostly in the left lower and left middle quadrants. No guarding. No rigidity. EXTREMITIES: No cyanosis or pedal edema appreciated. Positive soft calf in the right lower extremity from the almost to the lower leg. NEUROLOGIC: Alert and oriented. Normal speech. Moving bilateral upper extremities and feet without any problem. SKIN: Warm and moist. PSYCHIATRIC: Appropriate mood and affect. LABORATORY WBC count was 16.1 yesterday, today 13.4. Hemoglobin 11.4, today 8.8. Hematocrit 34, today 26.9. Platelet count 282, today 235. Sodium 134, CO2 20.8, BUN 20, creatinine 1.08, lactic acid 0.9, calcium 7.5, albumin 2.2. PT 10.1, INR 1. UA shows color hazy, urine protein 30, occult blood small, leukocyte esterase large, urine RBC 18, WBC 52. Blood cultures x2 and UA culture are pending. IMAGING CT of the abdomen and pelvis was done which shows large left-sided rectus abdominis muscle hematoma with evidence of focal active bleeding or pseudoaneurysm formation just below the rib cage. Right lower lobe consolidating airspace disease. Noncalcified gallstones. Esophagogastrostomy status post esophagogastrectomy. Status post right hip replacement. ASSESSMENT 1. Severe left abdominal pain secondary to a large left-sided rectus abdominis muscle hematoma with evidence of focal active bleeding or pseudoaneurysm formation just below the rib cage. 2. Anemia post acute blood loss. 3. Leukocytosis. 4. Right lower lobe consolidating airspace disease. 5. UTI. 6. Recent right hip fracture status post right hip bipolar hemiarthroplasty 7. Hypertension. 8. Vitamin-D deficiency. 9. History of esophageal cancer status post surgery. 10. GERD. 11. History of BPH status post a prostate procedure in 2005.. PLAN 1. Admit to the floor. 2. Serial H&H. 3. Surgical consult. 4. Discontinue all anticoagulants. 5. Monitor blood pressure. 6. Analgesics on a p.r.n. basis. 7. Antiemetics on a p.r.n. basis. 8. Continue home medication as indicated. 9. We will hold physical therapy. 10. SCDs for DVT prophylaxis. 11. Condition discussed with the patient, the patient's and daughter in detail at the patient's bedside. All questions are answered. Condition guarded. Prognosis guarded. 12. Further recommendations to follow as per patient's progress. MD APPLE Nichols /9:30 AM 9:49 AM
[2017-04-01] MEDS: DORZOLAMIDE/TIMOLOL OPTH SOLN 10 ML BTL EACH EYE SCH ×2 (10:40→21:32)
[2017-04-01] MEDS ORDERED: BRIMONIDINE OPTH EACH EYE SCH (10:45)
[2017-04-01] MEDS: METOPROLOL SUCCINATE 25 MG EXTENDED RELEASE TAB PO SCH (11:00)
[2017-04-01] MEDS: VALSARTAN 80 MG TAB PO SCH (11:00)
[2017-04-01 11:36] LABS: REVIEW FLAG FINAL
[2017-04-01] MEDS: PANTOPRAZOLE SOD 20 MG DELAYED RELEASE TAB PO SCH (11:41)
--- NOTE | 2017-04-01 13:38 | PD.CONS ---
HPI Service General surgery Consult Requested By Reason for Consult Rectus sheath hematoma Primary Care Physician Inder Michelle MD, PhD History of Present Illness Mr. Marie is an 86-year-old male who underwent hip surgery a few days ago. He was in the rehabilitation facility and during or after physical therapy noted pain in the left abdomen. He had been placed onto rolled to status post hip surgery. He was evaluated in the emergency department noted to have a hemoglobin of 11 and the abdominal pain and abdominal CT was ordered. The CT showed large rectus sheath hematoma. Review of Systems Constitutional: DENIES: Fever Eyes: DENIES: Eye inflammation, Eye pain Respiratory: DENIES: Cough, Wheezing Cardiovascular: DENIES: Chest pain, Palpitations Gastrointestinal: COMPLAINS OF: Abdominal pain Integumentary: DENIES: Pruritus, Rash Neurologic: DENIES: Paresthesias, Seizures Past Family Social History Past Medical History Hypertension GERD Past Surgical History Esophagectomy Melanoma excision Reported Medications Reported Meds & Active Scripts Active Calcium 600+D 200 (Calcium Carbonate-Vitamin D) 600-200 Mg-Unit Tab 1 Tab PO BID Ergocalciferol 50,000 Unit Cap 50,000 Units PO Q7D Xarelto (Rivaroxaban) 10 Mg Tab 10 Mg PO DAILY Hydrocodone-Acetaminophen 7.5-325 mg Tab 1 Tab PO Q4H PRN Walker/Adult/Folding (Device) 1 Mis Mis Ea .ROUTE DIRECTED Reported Ceftin (Cefuroxime Axetil) 250 Mg Tab 500 Mg PO BID 5 Days Lumigan Opth Drops (Bimatoprost) 0.01% Soln 1 Drop EACH EYE HS Alphagan P Opth Drops (Brimonidine Tartrate) 0.1% Soln 1 Drop EACH EYE BID Dorzolamide-Timolol Opth Drops 22.3-6.8 Mg/Ml Soln 1 Drop EACH EYE BID Melatonin 3 Mg Tab 3 Mg PO HS [Hydraplenish W/Msm] 1 Tab PO BID Lutein 6 Mg Tab 24 Mg PO DAILY Valsartan 80 Mg Tab 80 Mg PO DAILY Calcium 600+D (Calcium Carbonate-Vitamin D) 600-400 Mg-Unit Tab 1 Tab PO DAILY Aspirin Adult Low Strength (Aspirin) 81 Mg Tabdr 81 Mg PO DAILY Omeprazole 20 Mg Tab 20 Mg PO DAILY Metoprolol Succinate ER 24 HR (Metoprolol Succinate) 25 Mg Tab 25 Mg PO DAILY Centrum Silver Men Tablet (Multivit-Min/FA/Lycopen/Lutein) 300 Mcg-600 Mcg-300 Mcg Tablet 1 Tab PO DAILY Flaxseed Oil (Flaxseed (Linseed)) 1,000 Mg Cap 1,000 Mg PO DAILY Fish Oil 1000 mg (Calcium-3 Fatty Acids) 300 Mg-1,000 Mg Cap 1,000 Mg PO DAILY B12 (Cyanocobalamin) 1,000 Mcg Tab 1,000 Mcg PO DAILY Alpha Lipoic Acid 200 Mg Cap 200 Mg PO DAILY Allergies: Coded Allergies: No Known Allergies (Verified , 03/26/17) Active Ordered Medications Current Medications Medications (Trade) Dose Ordered Sig/James Route Start Time Stop Time Status Last Admin Sodium Chloride 1,000 ml @ 100 mls/hr Q10H IV 03/31/17 21:51 04/01/17 07:31 (NS Flush) 2 ml UNSCH PRN IV FLUSH 03/31/17 22:00 (NS Flush) 2 ml BID IV FLUSH 04/01/17 09:00 (Tylenol) 650 mg Q4H PRN PO 03/31/17 22:00 (Zofran Inj) 4 mg Q6H PRN IVP 03/31/17 22:00 (Narcan Inj) 0.4 mg UNSCH PRN IV PUSH 03/31/17 22:00 ([place]-Colace) 1 tab BID PO 04/01/17 09:00 (Milk Of Magnesia Liq) 30 ml Q12H PRN PO 03/31/17 22:00 (Senokot) 17.2 mg Q12H PRN PO 03/31/17 22:00 (Dulcolax Supp) 10 mg DAILY PRN RECTAL 03/31/17 22:00 (Lactulose Liq) 30 ml DAILY PRN PO 03/31/17 22:00 (Morphine Inj) 2 mg Q3H PRN IV 04/01/17 07:00 04/01/17 12:44 (Morphine Inj) 4 mg Q3H PRN IV 04/01/17 07:00 04/01/17 06:44 (Cosopt 2-0.5% Opth Soln) 1 drop BID EACH EYE 04/01/17 11:00 (Drisdol) 50,000 units Q7D PO 04/03/17 09:00 ([place] 7.5-325 Mg) 1 tab Q4H PRN PO 04/01/17 09:45 (Toprol Xl) 25 mg DAILY PO 04/01/17 11:00 (Diovan) 80 mg DAILY PO 04/01/17 11:00 Patient Own Medication PT OWN MED: (Bimatoprost Opth . HS EACH EYE 04/01/17 21:00 Future Hold Patient Own Medication PT OWN MED: (Brimonidine Opth .. BID EACH EYE 04/01/17 10:45 Future Hold (Oscal-D 250-125) 2 mg BID PO 04/01/17 21:00 (Vitamin B12) 1,000 mcg DAILY PO 04/02/17 09:00 (Theragran) 1 tab DAILY PO 04/02/17 09:00 (Protonix) 20 mg DAILY PO 04/01/17 12:00 Family History Noncontributory Social History No alcohol tobacco or drug use Physical Exam Vital Signs Vital Signs Date Time Temp Pulse Resp B/P (MAP) Pulse Ox O2 Delivery O2 Flow Rate FiO2 04/01/17 12:00 98.1 86 16 111/59 (76) 92 04/01/17 09:31 92 04/01/17 08:00 99.1 86 16 124/60 (81) 93 04/01/17 05:30 97.7 84 20 114/62 (79) 92 04/01/17 03:00 93 04/01/17 01:37 98.0 102 20 95/57 (70) 95 03/31/17 22:00 93 03/31/17 22:00 84 18 118/66 (83) 94 03/31/17 20:22 18 03/31/17 20:00 92 18 134/69 (90) 96 03/31/17 18:25 98.1 108 16 133/75 (94) Physical Exam GENERAL: Awake and alert. No acute distress. Cooperative. Elderly. HEAD: Normocephalic. Atraumatic. EYES: Pupils equal round and reactive to light bilaterally. No scleral icterus. CHEST: Nonlabored breathing. No respiratory distress. CARDIOVASCULAR: Regular rate and rhythm. ABDOMEN: No ecchymoses. Swelling of the left mid abdominal wall with tenderness. EXTREMITIES: No cyanosis or edema. SKIN: Warm, dry, nonjaundiced. Pale. Laboratory Laboratory Tests Test 03/31/17 19:25 03/31/17 23:10 04/01/17 04:30 04/01/17 11:10 White Blood Count 16.1 13.4 Red Blood Count 4.16 3.21 Hemoglobin 11.4 8.8 8.6 Hematocrit 34.7 26.9 26.0 Mean Corpuscular Volume 83.5 83.7 Mean Corpuscular Hemoglobin 27.3 27.3 Mean Corpuscular Hemoglobin Concent 32.7 32.6 Red Cell Distribution Width 16.0 16.4 Platelet Count 282 235 Mean Platelet Volume 7.2 7.1 Neutrophils (%) (Auto) 83.0 81.3 Lymphocytes (%) (Auto) 6.9 8.3 Monocytes (%) (Auto) 9.3 9.7 Eosinophils (%) (Auto) 0.5 0.4 Basophils (%) (Auto) 0.3 0.3 Neutrophils # (Auto) 13.3 10.9 Lymphocytes # (Auto) 1.1 1.1 Monocytes # (Auto) 1.5 1.3 Eosinophils # (Auto) 0.1 0.1 Basophils # (Auto) 0.0 0.0 CBC Comment DIFF FINAL DIFF FINAL Differential Comment Prothrombin Time 11.9 10.8 10.7 Prothromb Time International Ratio 1.1 1.0 1.0 Activated Partial Thromboplast Time 30.1 Urine Color YELLOW Urine Turbidity HAZY Urine pH 7.0 Urine Specific [place] 1.027 Urine Protein 30 Urine Glucose (UA) NEG Urine Ketones 10 Urine Occult Blood SMALL Urine Nitrite NEG Urine Bilirubin NEG Urine Urobilinogen LESS THAN 2.0 Urine Leukocyte Esterase LARGE Urine RBC 18 Urine WBC 52 Urine Squamous Epithelial Cells <1 Urine Calcium Oxalate Crystals RARE Urine Amorphous Sediment RARE Urine Bacteria RARE Urine Mucus FEW Microscopic Urinalysis Comment CULTURE INDICATED Blood Urea Nitrogen 15 20 Creatinine 0.84 1.08 Random Glucose 157 114 Total Protein 6.5 5.3 Albumin 2.7 2.2 Calcium Level 8.8 7.5 Alkaline Phosphatase 64 57 Aspartate Amino Transf (AST/SGOT) 39 33 Alanine Aminotransferase (ALT/SGPT) 56 54 Total Bilirubin 1.4 0.7 Sodium Level 132 134 Potassium Level 3.6 3.8 Chloride Level 100 104 Carbon Dioxide Level 19.6 20.8 Anion Gap 12 9 Estimat Glomerular Filtration Rate 87 65 Lactic Acid Level 1.7 0.9 Lipase 130 Date/Time Source Procedure Growth Status 04/01/17 04:30 Blood Other Aerobic Blood Culture Pending Received 04/01/17 04:30 Blood Other Anaerobic Blood Culture Pending Received 03/31/17 19:25 Urine Random Urine Urine Culture - Preliminary IMMATURE GROWTH - REINCUBATE Resulted Result Diagram: 04/01/17 1110 04/01/17 0430 Imaging Last Impressions Abdomen/Pelvis CT 04/02/17 0000 Signed Impressions: Service Date/Time: Sunday, April 02, 2017 13:25 - CONCLUSION: 1. The left rectus muscle hematoma is slightly decreased in size on today's exam compared to the prior study. 2. Gallstone in the gallbladder. No biliary tract obstruction. 3. No other significant changes compared to the prior exam. Montrell Mcdermott MD Assessment and Plan Assessment and Plan 86 yo M with rectus sheath hematoma causing bleeding K centra given in ED Xarelto stopped Hgb decreased from 11 last night to 8 today, but repeat has been stable. Recommend abdominal binder. If continued decrease in Hgb, will ask IR to evaluate. Diet clears. Boston Thompson MD Apr 01, 2017 13:38
[2017-04-01] MEDS ORDERED: CALCIUM/VITAMIN D 250 MG/125 U TAB PO SCH (21:00)
[2017-04-01] MEDS ORDERED: NON-FORMULARY DRUG (Melatonin 3 MG) PO SCH (21:00)
[2017-04-01] MEDS ORDERED: BIMATOPROST OPTH EACH EYE SCH (21:00)
[2017-04-02] VITALS (17 sets, daily range): BP systolic 125–155; BP diastolic 60–98; PULSE 75–101; RESP 18–23; TEMP 98.2–99.6; O2SAT 91–95
[2017-04-02 03:44] LABS: HEMATOCRIT 22.8 % (39.0-51.0); MEAN CORPUSCULAR HGB CONC 33.3 % (32.0-36.0); PLATELET COUNT 252 TH/MM3 (150-450); RED BLOOD COUNT 2.71 MIL/MM3 (4.50-5.90); RED CELL DISTRIBUTION WIDTH 16.7 % (11.6-17.2); REVIEW FLAG FINAL; WHITE BLOOD COUNT 10.9 TH/MM3 (4.0-11.0)
[2017-04-02 03:55] LABS: BICARBONATE 23.8 MEQ/L (21.0-32.0)
[2017-04-02] MEDS: SODIUM CHLOR 0.9% 1000 ML INJ 1,000 ML IV SCH (07:51)
[2017-04-02] MEDS: MULTIVITAMIN TAB PO SCH (08:54)
[2017-04-02] MEDS: METOPROLOL SUCCINATE 25 MG EXTENDED RELEASE TAB PO SCH (08:54)
[2017-04-02] MEDS: DOCUSATE SODIUM 50 MG/SENNA 8.6 MG TAB PO SCH ×2 (08:54→21:58)
[2017-04-02] MEDS: VALSARTAN 80 MG TAB PO SCH (08:54)
[2017-04-02] MEDS: PANTOPRAZOLE SOD 20 MG DELAYED RELEASE TAB PO SCH (08:54)
[2017-04-02] MEDS: CYANOCOBALAMIN 1,000 MCG TAB PO SCH (08:54)
[2017-04-02] MEDS: CALCIUM/VITAMIN D 250 MG/125 U TAB PO SCH ×2 (08:58→21:58)
[2017-04-02] MEDS: DORZOLAMIDE/TIMOLOL OPTH SOLN 10 ML BTL EACH EYE SCH ×2 (08:58→21:58)
[2017-04-02] MEDS: SODIUM CHLORIDE 0.9% FLUSH 10 ML FLUSH IV FLUSH SCH ×2 (09:00→21:58)
[2017-04-02] MEDS ORDERED: NON-FORMULARY DRUG (Flaxseed (Linseed) (Flaxseed Oil) 1,000 MG) PO SCH (09:00)
[2017-04-02] MEDS ORDERED: LUTEIN PO SCH (09:00)
[2017-04-02] MEDS ORDERED: NON-FORMULARY DRUG (Omega-3 Fatty Acids (Fish Oil 1000 mg) 1,000 MG) PO SCH (09:00)
--- NOTE | 2017-04-02 10:24 | HHI.PR ---
Subjective Remarks Patient has less pain than yesterday. Morphine is helping. No nausea vomiting No chest pain No shortness of breath No diarrhea or constipation No genitourinary symptoms Family is bedside Review of systems a 10 point system otherwise unremarkable Objective Objective Results - Vital Signs Date Time Temp Pulse Resp B/P (MAP) Pulse Ox O2 Delivery O2 Flow Rate FiO2 04/02/17 08:00 98.5 82 20 127/60 (82) 92 04/02/17 04:00 98.6 79 18 125/61 (82) 93 04/02/17 01:31 75 04/02/17 00:00 98.2 90 18 133/69 (90) 95 04/01/17 20:00 98.8 87 18 130/59 (82) 91 04/01/17 16:00 98.2 86 16 123/58 (79) 93 04/01/17 12:00 98.1 86 16 111/59 (76) 92 I/O 04/01/17 04/01/17 04/01/17 04/02/17 04/02/17 04/02/17 06:59 14:59 22:59 06:59 14:59 22:59 Intake Total 1049 ml 896 ml 112 ml Output Total 50 ml 600 ml Balance 1049 ml -50 ml 296 ml 112 ml Intake IV Total 1049 ml 896 ml 112 ml Output Urine Total 50 ml 600 ml Bladder Scan Volume Amount 520 ml Result Diagram: 04/02/17 0328 04/02/17 0328 Other Results Laboratory Tests Test 04/01/17 11:10 04/01/17 18:15 04/01/17 21:27 04/02/17 03:28 Hemoglobin 8.6 7.6 Hematocrit 26.0 25.0 24.5 22.8 White Blood Count 10.9 Red Blood Count 2.71 Mean Corpuscular Volume 84.0 Mean Corpuscular Hemoglobin 28.0 Mean Corpuscular Hemoglobin Concent 33.3 Red Cell Distribution Width 16.7 Platelet Count 252 Mean Platelet Volume 6.4 Blood Urea Nitrogen 22 Creatinine 1.09 Random Glucose 105 Calcium Level 7.6 Sodium Level 137 Potassium Level 4.0 Chloride Level 106 Carbon Dioxide Level 23.8 Anion Gap 7 Estimat Glomerular Filtration Rate 64 Date/Time Source Procedure Growth Status 04/01/17 04:30 Blood Other Aerobic Blood Culture Pending Received 04/01/17 04:30 Blood Other Anaerobic Blood Culture Pending Received 03/31/17 19:25 Urine Random Urine Urine Culture - Preliminary IMMATURE GROWTH - REINCUBATE Resulted Physical Exam Physical Exam GENERAL: The patient is alert and oriented x3, well-built, well-nourished, lying on the bed without any apparent distress. VITAL SIGNS: Reviewed HEENT: Head is atraumatic, normocephalic. Eyes negative. No icterus. Mouth unremarkable. NECK: Supple. No increased JVD. Negative thyromegaly. Central trachea. LUNGS: Clear to auscultation. HEART: S1, S2 audible. Unable to hear any S3 gallop. ABDOMEN: Soft. Tender, mostly in the left lower and left middle quadrants, less than yesterday. No guarding. No rigidity. EXTREMITIES: No cyanosis or pedal edema appreciated. Positive soft cast in the right lower extremity from the upper thigh almost to the lower leg. NEUROLOGIC: Alert and oriented. Normal speech. Moving bilateral upper extremities and feet without any problem. SKIN: Warm and moist. PSYCHIATRIC: Appropriate mood and affect. A/P Assessment and Plan 1. Severe left abdominal pain secondary to a large left-sided rectus abdominis muscle hematoma with evidence of focal active bleeding or pseudoaneurysm formation just below the rib cage. 2. Anemia post acute blood loss. 3. Leukocytosis. 4. Right lower lobe consolidating airspace disease. 5. UTI. 6. Recent right hip fracture status post right hip bipolar hemiarthroplasty 7. Hypertension. 8. Vitamin-D deficiency. 9. History of esophageal cancer status post surgery. 10. GERD. 11. History of BPH status post a prostate procedure in 2005.. PLAN 1. Seen on the floor. 2. Serial H&H. Showing slight decrease in H&H will transfuse him today 3. Surgical consult appreciated. His custom surgeon 4. Discontinue all anticoagulants. 5. Monitor blood pressure. 6. Analgesics on a p.r.n. basis. 7. Antiemetics on a p.r.n. basis. 8. Continue home medication as indicated. 9. We will hold physical therapy. 10. SCDs for DVT prophylaxis. 11. Condition discussed with the patient, the patient's and daughter in detail at the patient's bedside again. All questions are answered. Condition guarded. Prognosis guarded. 12. Further recommendations to follow as per patient's progress. Brittany Javier MD Apr 02, 2017 10:24
[2017-04-02] MEDS ORDERED: SODIUM CHLOR 0.9% 250 ML INJ 250 ML IV ONE (10:30)
[2017-04-02] MEDS ORDERED: ACETAMINOPHEN 325 MG TAB PO PRN (11:00)
[2017-04-02] MEDS ORDERED: IOHEXOL 350 MG/ML 10 ML VIAL (for RAD DIAG) IVCONTRAST ONE (13:39)
--- NOTE | 2017-04-02 13:48 | RADRPT ---
EXAM DATE/TIME: 04/02/2017 13:25 [facility] COMPARISON: CT ABDOMEN & PELVIS W CONTRAST, March 31, 2017, 20:36. INDICATIONS : Rectus sheath hematoma. IV CONTRAST: 80 cc Omnipaque 350 (iohexol) IV ORAL CONTRAST: No oral contrast ingested. RADIATION DOSE: 7.9 CTDIvol (mGy) MEDICAL HISTORY : Hypertension. Carcinoma, esophageal. SURGICAL HISTORY : Appendectomy. Inguinal hernia repair.Esophagogastrectomy. ENCOUNTER: Subsequent ACUITY: 2 days PAIN SCALE: 2/10 LOCATION: Abdomen. TECHNIQUE: Volumetric scanning of the abdomen and pelvis was performed. Using automated exposure control and ad justment of the mA and/or kV according to patient size, radiation dose was kept as low as reasonably achievable to obtain optimal diagnostic quality images. DICOM format image data is available electro nically for review and comparison. FINDINGS: LOWER LUNGS: Status post esophagectomy with a gastric pull-through. Right lower lung atelectasis without significa nt change. Mild left lower lung atelectasis. LIVER: Homogeneous density without lesion. There is no dilation of the biliary tree. Gallstone in the gallb ladder. No surrounding inflammatory changes. SPLEEN: Normal size without lesion. PANCREAS: Within normal limits. KIDNEYS: Normal in size and shape. There is no mass, stone or hydronephrosis. Stable bilateral renal cysts. ADRENAL GLANDS: Within normal limits. VASCULAR: There is no aortic aneurysm. BOWEL/MESENTERY: The stomach, small bowel, and colon demonstrate no acute abnormality. There is no free intraperitone al air or fluid. ABDOMINAL WALL: There continues to be a left rectus hematoma in the body of the rectus muscle. The hematoma is slight ly decreased in size compared to the prior exam. No definite active hemorrhage is seen. RETROPERITONEUM: There is no lymphadenopathy. BLADDER: Quintana catheter, decompressed bladder REPRODUCTIVE: Within normal limits. INGUINAL: There is no lymphadenopathy or hernia. MUSCULOSKELETAL: Stable degenerative changes. CONCLUSION: 1. The left rectus muscle hematoma is slightly decreased in size on today's exam compared to the prio r study. 2. Gallstone in the gallbladder. No biliary tract obstruction. 3. No other significant changes compared to the prior exam. Montrell Mcdermott MD on April 02, 2017 at 13:42 Board Certified Radiologist. This report was verified electronically.
--- NOTE | 2017-04-02 16:13 | HHI.PR ---
Subjective Subjective Notes No complaints. His pain is better. He is being transfused today for Hgb 7.6. Objective Vitals/I&O Vital Signs Date Time Temp Pulse Resp B/P (MAP) Pulse Ox O2 Delivery O2 Flow Rate FiO2 04/02/17 15:14 99.3 92 21 142/69 (93) 92 Labs Laboratory Tests Test 04/01/17 18:15 04/01/17 21:27 04/02/17 03:28 04/02/17 12:45 Hematocrit 25.0 24.5 22.8 22.8 White Blood Count 10.9 Red Blood Count 2.71 Hemoglobin 7.6 Mean Corpuscular Volume 84.0 Mean Corpuscular Hemoglobin 28.0 Mean Corpuscular Hemoglobin Concent 33.3 Red Cell Distribution Width 16.7 Platelet Count 252 Mean Platelet Volume 6.4 Blood Urea Nitrogen 22 Creatinine 1.09 Random Glucose 105 Calcium Level 7.6 Sodium Level 137 Potassium Level 4.0 Chloride Level 106 Carbon Dioxide Level 23.8 Anion Gap 7 Estimat Glomerular Filtration Rate 64 Magnesium Level 2.2 Date/Time Source Procedure Growth Status 04/01/17 04:30 Blood Other Aerobic Blood Culture - Preliminary NO GROWTH IN 1 DAY Resulted 04/01/17 04:30 Blood Other Anaerobic Blood Culture - Preliminary NO GROWTH IN 1 DAY Resulted 03/31/17 19:25 Urine Random Urine Urine Culture - Preliminary Gram Negative Tariq Resulted Narrative Exam NAD, comfortable Mod abd ttp, no ecchymoses A/P Assessment and Plan 86 yo M with rectus sheath hematoma. Being transfused for hgb 7.6. Repeat CT a/p did not show active bleeding and hematoma size decreased. Start regular diet. Possible dc home tomorrow if h/h stable. Cont abdominal binder. Boston Thompson MD Apr 02, 2017 16:13
--- NOTE | 2017-04-02 16:26 | HHI.FF ---
Face to Face Verification Diagnosis: (1) Status post right hip replacement Physical Therapy Gait training Hip: Total hip, Protocol: Right, Posterior hip precautions Canvas Knee Splint: Other (only while in bed) Right LE Weight Bearing: WB as tolerated Nursing Dressing Changes: Daily dressing change, Coverderm/Primapore (begin adding xeroform on POD 10) I have seen patient Claeb Marie on 04/02/17. My clinical findings support the need for the requested home health care services because: Ltd mobility - disease progression I certify that my clinical findings support that this patient is homebound because: Post-op weakness Cliff James Apr 02, 2017 16:26
[2017-04-03] VITALS (8 sets, daily range): BP systolic 130–174; BP diastolic 68–84; PULSE 80–107; RESP 18–20; TEMP 97.8–98.8; O2SAT 90–95
[2017-04-03] MEDS: SODIUM CHLOR 0.9% 1000 ML INJ 1,000 ML IV SCH (07:51)
[2017-04-03] MEDS: PANTOPRAZOLE SOD 20 MG DELAYED RELEASE TAB PO SCH (08:52)
[2017-04-03] MEDS: VALSARTAN 80 MG TAB PO SCH (08:52)
[2017-04-03] MEDS: DOCUSATE SODIUM 50 MG/SENNA 8.6 MG TAB PO SCH ×2 (08:52→20:43)
[2017-04-03] MEDS: MULTIVITAMIN TAB PO SCH (08:53)
[2017-04-03] MEDS: METOPROLOL SUCCINATE 25 MG EXTENDED RELEASE TAB PO SCH (08:53)
[2017-04-03] MEDS: CALCIUM/VITAMIN D 250 MG/125 U TAB PO SCH ×2 (08:53→17:45)
[2017-04-03] MEDS: DORZOLAMIDE/TIMOLOL OPTH SOLN 10 ML BTL EACH EYE SCH ×2 (08:53→20:34)
[2017-04-03] MEDS: CYANOCOBALAMIN 1,000 MCG TAB PO SCH (08:53)
[2017-04-03] MEDS: SODIUM CHLORIDE 0.9% FLUSH 10 ML FLUSH IV FLUSH SCH ×2 (08:56→20:33)
[2017-04-03] MEDS ORDERED: ERGOCALCIFEROL (VIT D2) 50,000 UNIT CAP PO SCH (09:00)
[2017-04-03 10:46] LABS: HEMATOCRIT 28.1 % (39.0-51.0); MEAN CELL VOLUME 84.1 FL (80.0-100.0); MEAN CORPUSCULAR HGB CONC 33.3 % (32.0-36.0); PLATELET COUNT 282 TH/MM3 (150-450); RED BLOOD COUNT 3.34 MIL/MM3 (4.50-5.90); RED CELL DISTRIBUTION WIDTH 16.1 % (11.6-17.2); REVIEW FLAG FINAL; WHITE BLOOD COUNT 10.1 TH/MM3 (4.0-11.0)
[2017-04-03 11:11] LABS: BICARBONATE 18.1 MEQ/L (21.0-32.0); POTASSIUM 3.2 MEQ/L (3.5-5.1)
--- NOTE | 2017-04-03 12:52 | HHI.PR ---
Subjective Remarks Patient has less pain than yesterday. last pain medication use is last night 10 oclock norco No nausea vomiting No chest pain No shortness of breath No diarrhea or constipation No genitourinary symptoms is at bedside Review of systems a 10 point system otherwise unremarkable Objective Objective Results - Vital Signs Date Time Temp Pulse Resp B/P (MAP) Pulse Ox O2 Delivery O2 Flow Rate FiO2 04/03/17 08:20 98.3 82 19 146/79 (101) 93 04/03/17 04:00 98.1 85 18 174/82 (112) 95 04/03/17 00:00 98.8 83 18 157/70 (99) 93 04/02/17 22:25 88 04/02/17 21:22 21 04/02/17 20:00 99.4 87 18 150/70 (96) 95 04/02/17 18:02 92 04/02/17 17:15 99.6 91 19 155/74 (101) 94 04/02/17 16:34 93 04/02/17 16:00 98.9 89 20 154/76 (102) 93 04/02/17 15:14 99.3 92 21 142/69 (93) 92 04/02/17 15:13 99.1 92 20 150/91 95 04/02/17 15:09 99.1 91 23 148/98 (115) 92 04/02/17 15:04 98.9 95 20 154/76 91 I/O 04/02/17 04/02/17 04/02/17 04/03/17 04/03/17 04/03/17 07:00 15:00 23:00 07:00 15:00 23:00 Intake Total 112 ml 898 ml Output Total 1120 ml 200 ml Balance 112 ml -222 ml -200 ml Intake IV Total 112 ml 68 ml Packed Cells 800 ml Blood Product IV Normal Saline Flush 30 ml Output Urine Total 1120 ml 200 ml Result Diagram: 04/03/17 0804/03/17 08 Other Results Laboratory Tests Test 04/03/17 08:00 White Blood Count 10.1 Red Blood Count 3.34 Hemoglobin 9.4 Hematocrit 28.1 Mean Corpuscular Volume 84.1 Mean Corpuscular Hemoglobin 28.0 Mean Corpuscular Hemoglobin Concent 33.3 Red Cell Distribution Width 16.1 Platelet Count 282 Mean Platelet Volume 7.0 Blood Urea Nitrogen 15 Creatinine 0.86 Random Glucose 126 Calcium Level 8.2 Sodium Level 136 Potassium Level 3.2 Chloride Level 106 Carbon Dioxide Level 18.1 Anion Gap 12 Estimat Glomerular Filtration Rate 85 Date/Time Source Procedure Growth Status 04/01/17 04:30 Blood Other Aerobic Blood Culture - Preliminary NO GROWTH IN 2 DAYS Resulted 04/01/17 04:30 Blood Other Anaerobic Blood Culture - Preliminary NO GROWTH IN 2 DAYS Resulted 03/31/17 19:25 Urine Random Urine Urine Culture - Final Pseudomonas Aeruginosa Complete Physical Exam Physical Exam GENERAL: The patient is alert and oriented x3, well-built, well-nourished, lying on the bed without any apparent distress. VITAL SIGNS: Reviewed HEENT: Head is atraumatic, normocephalic. Eyes negative. No icterus. Mouth unremarkable. NECK: Supple. No increased JVD. Negative thyromegaly. Central trachea. LUNGS: Clear to auscultation. HEART: S1, S2 audible. Unable to hear any S3 gallop. ABDOMEN: Soft. mildly Tender in the left lower and left middle quadrants, less than yesterday. No guarding. No rigidity, no rebound EXTREMITIES: No cyanosis or pedal edema appreciated. Positive soft cast in the right lower extremity from the upper thigh almost to the lower leg. NEUROLOGIC: Alert and oriented. Normal speech. Moving bilateral upper extremities and feet without any problem. SKIN: Warm and moist. PSYCHIATRIC: Appropriate mood and affect. A/P Assessment and Plan 1. Severe left abdominal pain secondary to a large left-sided rectus abdominis muscle hematoma with evidence of focal active bleeding or pseudoaneurysm formation just below the rib cage. 2. Anemia post acute blood loss. 3. Leukocytosis. 4. Right lower lobe consolidating airspace disease. 5. UTI. 6. Recent right hip fracture status post right hip bipolar hemiarthroplasty 7. Hypertension. 8. Vitamin-D deficiency. 9. History of esophageal cancer status post surgery. 10. GERD. 11. History of BPH status post a prostate procedure in 2005.. PLAN 1. Seen on the floor with at bedside 2. better H&H. after tx 3. Surgical consult appreciated. ok to dc as dwd him in pts room 4. off of all anticoagulants. 5. Monitor blood pressure. stable 6. Analgesics on a p.r.n. basis. 7. Antiemetics on a p.r.n. basis. 8. Continue home medication as indicated. 9. physical therapy. 10. SCDs for DVT prophylaxis. dc corral cath 11. Condition discussed with the patient, the patient's detail at the patient's bedside again. All questions are answered. Condition stable dw case manger about dc planning pt already got hospital bed at home and lift chair. they dont want to take him to SNF. They will get xtra help at home for him. Brittany Javier MD Apr 03, 2017 12:52
--- NOTE | 2017-04-03 12:56 | HHI.PR ---
Subjective Subjective Notes Hgb increased after transfusion. He is tolerating diet and had bowel movt. Objective Vitals/I&O Vital Signs Date Time Temp Pulse Resp B/P (MAP) Pulse Ox O2 Delivery O2 Flow Rate FiO2 04/03/17 12:46 97.8 94 20 130/68 (88) 91 04/02/17 21:22 21 Labs Laboratory Tests Test 04/03/17 08:00 White Blood Count 10.1 Red Blood Count 3.34 Hemoglobin 9.4 Hematocrit 28.1 Mean Corpuscular Volume 84.1 Mean Corpuscular Hemoglobin 28.0 Mean Corpuscular Hemoglobin Concent 33.3 Red Cell Distribution Width 16.1 Platelet Count 282 Mean Platelet Volume 7.0 Blood Urea Nitrogen 15 Creatinine 0.86 Random Glucose 126 Calcium Level 8.2 Sodium Level 136 Potassium Level 3.2 Chloride Level 106 Carbon Dioxide Level 18.1 Anion Gap 12 Estimat Glomerular Filtration Rate 85 Date/Time Source Procedure Growth Status 04/01/17 04:30 Blood Other Aerobic Blood Culture - Preliminary NO GROWTH IN 2 DAYS Resulted 04/01/17 04:30 Blood Other Anaerobic Blood Culture - Preliminary NO GROWTH IN 2 DAYS Resulted 03/31/17 19:25 Urine Random Urine Urine Culture - Final Pseudomonas Aeruginosa Complete Radiology Last Impressions Abdomen/Pelvis CT 04/02/17 0000 Signed Impressions: Service Date/Time: Sunday, April 02, 2017 13:25 - CONCLUSION: 1. The left rectus muscle hematoma is slightly decreased in size on today's exam compared to the prior study. 2. Gallstone in the gallbladder. No biliary tract obstruction. 3. No other significant changes compared to the prior exam. Montrell Mcdermott MD Narrative Exam NAD, comfortable Abdominal skin with mild ecchymoses A/P Assessment and Plan 86 yo M with rectus sheath hematoma. Hgb improved appropriately after transfusion. I am fine with him being discharged. Recommend follow up with his PCP. I can see on as needed basis. Boston Thompson MD Apr 03, 2017 12:55
--- NOTE | 2017-04-03 14:22 | EKG ---
Date Performed: 04/02/2017 Time Performed: 12:37:29 PTAGE: 86 years EKG: Sinus rhythm NORMAL ECG PREVIOUS TRACING : 03/26/2017 18.48 DOCTOR: Law Doherty Interpretating Date/Time 04/03/2017 14:17:33
[2017-04-03] MEDS: CIPROFLOXACIN 500 MG TAB PO SCH ×2 (15:00→20:31)
[2017-04-04 00:22] VITALS: BP 162/78; PULSE 79; RESP 18; TEMP 98.3; O2SAT 96
[2017-04-04 01:45] VITALS: PULSE 98
[2017-04-04 05:15] VITALS: BP 158/77; PULSE 75; RESP 20; TEMP 98.1; O2SAT 96
[2017-04-04] MEDS: CALCIUM/VITAMIN D 250 MG/125 U TAB PO SCH (06:22)
[2017-04-04] MEDS: SODIUM CHLOR 0.9% 1000 ML INJ 1,000 ML IV SCH (07:51)
[2017-04-04 08:00] VITALS: BP 160/90; PULSE 84; RESP 18; TEMP 97.9; O2SAT 96
[2017-04-04 08:01] VITALS: PULSE 76
[2017-04-04] MEDS: SODIUM CHLORIDE 0.9% FLUSH 10 ML FLUSH IV FLUSH SCH (08:55)
[2017-04-04 08:59] LABS: HEMATOCRIT 25.2 % (39.0-51.0)
[2017-04-04] MEDS: DOCUSATE SODIUM 50 MG/SENNA 8.6 MG TAB PO SCH (09:00)
[2017-04-04] MEDS: DORZOLAMIDE/TIMOLOL OPTH SOLN 10 ML BTL EACH EYE SCH (09:02)
[2017-04-04] MEDS: PANTOPRAZOLE SOD 20 MG DELAYED RELEASE TAB PO SCH (09:02)
[2017-04-04] MEDS: CYANOCOBALAMIN 1,000 MCG TAB PO SCH (09:03)
[2017-04-04] MEDS: VALSARTAN 80 MG TAB PO SCH (09:03)
[2017-04-04] MEDS: CIPROFLOXACIN 500 MG TAB PO SCH (09:03)
[2017-04-04] MEDS: MULTIVITAMIN TAB PO SCH (09:03)
[2017-04-04] MEDS: METOPROLOL SUCCINATE 25 MG EXTENDED RELEASE TAB PO SCH (09:03)
--- NOTE | 2017-04-04 11:02 | HHI.PR ---
Subjective Remarks Patient pain is better and well controlled had good BM yesterday No nausea vomiting No chest pain No shortness of breath No diarrhea or constipation No genitourinary symptoms is at bedside Review of systems a 10 point system otherwise unremarkable Objective Objective Results - Vital Signs Date Time Temp Pulse Resp B/P (MAP) Pulse Ox O2 Delivery O2 Flow Rate FiO2 04/04/17 08:01 76 04/04/17 08:00 97.9 84 18 160/90 (113) 96 04/04/17 05:15 98.1 75 20 158/77 (104) 96 04/04/17 01:45 98 04/04/17 00:22 98.3 79 18 162/78 (106) 96 04/03/17 20:30 Nasal Cannula 2.00 04/03/17 20:30 98.3 80 18 144/84 (104) 92 04/03/17 16:30 98.0 107 20 133/68 (89) 90 04/03/17 15:51 94 04/03/17 12:46 97.8 94 20 130/68 (88) 91 I/O 04/03/17 04/03/17 04/03/17 04/04/17 04/04/17 04/04/17 07:00 15:00 23:00 07:00 15:00 23:00 Intake Total 360 ml Output Total 450 ml Balance -90 ml Intake Oral 360 ml Output Urine Total 450 ml Bladder Scan Volume Amount 163 ml 163 ml 233 ml 233 ml # Voids 1 # Bowel Movements 1 2 Result Diagram: 04/04/17 0646 04/03/17 0800 Other Results Laboratory Tests Test 04/04/17 06:46 Hemoglobin 8.5 Hematocrit 25.2 Date/Time Source Procedure Growth Status 04/01/17 04:30 Blood Other Aerobic Blood Culture - Preliminary NO GROWTH IN 2 DAYS Resulted 04/01/17 04:30 Blood Other Anaerobic Blood Culture - Preliminary NO GROWTH IN 2 DAYS Resulted 03/31/17 19:25 Urine Random Urine Urine Culture - Final Pseudomonas Aeruginosa Complete Physical Exam Physical Exam GENERAL: The patient is alert and oriented x3, well-built, well-nourished, lsitting o recliner without any apparent distress. VITAL SIGNS: Reviewed HEENT: Head is atraumatic, normocephalic. Eyes negative. No icterus. Mouth unremarkable. NECK: Supple. No increased JVD. Negative thyromegaly. Central trachea. LUNGS: Clear to auscultation. HEART: S1, S2 audible. Unable to hear any S3 gallop. ABDOMEN: Soft. mildly Tender in the left lower and left middle quadrants, less than yesterday. No guarding. No rigidity, no rebound EXTREMITIES: No cyanosis or pedal edema appreciated. Positive soft cast in the right lower extremity from the upper thigh almost to the lower leg. NEUROLOGIC: Alert and oriented. Normal speech. Moving bilateral upper extremities and feet without any problem. SKIN: Warm and moist. PSYCHIATRIC: Appropriate mood and affect. A/P Assessment and Plan 1. Severe left abdominal pain secondary to a large left-sided rectus abdominis muscle hematoma with evidence of focal active bleeding or pseudoaneurysm formation just below the rib cage. 2. Anemia post acute blood loss. 3. Leukocytosis. 4. Right lower lobe consolidating airspace disease. 5. UTI. 6. Recent right hip fracture status post right hip bipolar hemiarthroplasty 7. Hypertension. 8. Vitamin-D deficiency. 9. History of esophageal cancer status post surgery. 10. GERD. 11. History of BPH status post a prostate procedure in 2005.. PLAN 1. Seen on the floor with at bedside 2. slight de in H&H. s/p 1 unit blood tx, h/h went up to from 7.6-9.4. Today it is 8.5. As discussed with surgeon will repeat H&H. If stable will discharge home off of and repeat H&H on Saturday. Discussed with his primary care doctor Dr. ware on phone about this. He will follow Saturday H&H and if is stable restart Xarelto and if it drops he will do appropriate measures. 3. Surgical consult and input appreciated. ok to dc as dwd him if H&H is stable this afternoon 4. off of all anticoagulants. Advised to restart on Saturday if it is okay with Dr. corbin easley after blood test. understood 5. Monitor blood pressure. stable 6. Analgesics on a p.r.n. basis. 7. Antiemetics on a p.r.n. basis. 8. Continue home medication as indicated. 9. physical therapy. 10. SCDs for DVT prophylaxis. la corral cath . Seems like patient may have a mild BPH with a start Flomax 11. Condition discussed with the patient, the patient's detail at the patient's bedside again. All questions are answered. Condition stable Discussed with RN If stable H&H will DC home today with home health care. Brittany Javier MD Apr 04, 2017 11:02
[2017-04-04] MEDS ORDERED: TAMS5CAP PO (11:07)
[2017-04-04] MEDS ORDERED: HYDR-3580 PO (11:07)
[2017-04-04] MEDS ORDERED: XARE10TA PO (11:07)
[2017-04-04 12:00] VITALS: BP 109/68; PULSE 94; RESP 18; TEMP 97.6; O2SAT 93
[2017-04-04] MEDS ORDERED: TAMSULOSIN HCL 0.4 MG CAP PO SCH (12:00)
[2017-04-04 13:29] LABS: HEMATOCRIT 25.7 % (39.0-51.0)
[2017-04-04] MEDS ORDERED: POTASSIUM CHLORIDE 20 MEQ CONTROLLED RELEASE TAB PO ONE (14:00)
[2017-04-04] MEDS ORDERED: ROLLER WALKER1 MI1 (15:03)
== END 2017-04-04 15:52 | disposition home health service (06) | DRG 605 ==
LOC: NEPC 16:33 → NEDA 21:44 → N05A 23:44
PROVIDERS: ADMIT Specialist; ATTEND Specialist
PROC: 30233N1 Transfusion of Nonautologous Red Blood Cells into Peripheral Vein, Percutaneous Approach (ICD-10-PCS; principal; 2017-04-02)
DX: S30.1XXA Contusion of abdominal wall, initial encounter (principal); N39.0 Urinary tract infection, site not specified; D62 Acute posthemorrhagic anemia; I10 Essential (primary) hypertension; H40.9 Unspecified glaucoma; K21.9 Gastro-esophageal reflux disease without esophagitis; Z85.820 Personal history of malignant melanoma of skin; M19.90 Unspecified osteoarthritis, unspecified site; Z79.01 Long term (current) use of anticoagulants; Z79.82 Long term (current) use of aspirin; W19.XXXA Unspecified fall, initial encounter; Z85.01 Personal history of malignant neoplasm of esophagus; E55.9 Vitamin D deficiency, unspecified
CPT/HCPCS: 36430; 74177; 80048; 80053; 81001; 83605; 83690; 83735; 85014; 85018; 85025; 85027; 85610; 85730; 86850; 86900; 86901; 86920; 87040; 87077; 87086; 87186; 93005; 96365; 96375; C9132; J0456; J0696; J1170; J2270; J2405; J7030; J7050; L1830; P9016; Q9967